=== PATIENT | male | born 1960 | race Caucasian/White ===

== ENCOUNTER 2019-05-17 09:39 | Inpatient (IN) | payer MEDICARE, OTHER ==
[2019-05-17] MEDS ORDERED: LORazepam 2 MG/ML INJ IV PRN (09:49)
--- NOTE | 2019-05-17 09:55 | ED ---
General Adult HPI - General Stated complaint: Cardiac issuses Time Seen by Provider: 05/17/19 09:39 Source: EMS, RN notes reviewed, old records reviewed Mode of arrival: EMS Limitations: altered mental status, physical limitation - History of Present Illness Initial comments: Patient is an unresponsive 58-year-old male with history of Down syndrome presenting to emergency Department as a transfer from [facility]. Patient reportedly was eating when there was questionable choking and patient became unresponsive. Patient had a downtime of approximately 40 minutes. Patient was given 3 epinephrine. Patient was intubated. There was reported concern for food products and the oral pharynx during intubation. Patient did have central line placed and started on Levophed. Patient was also given clindamycin with concern for possible aspiration pneumonia. Patient is unresponsive and unable to provide any additional information. Patient reportedly did have 2 L fluid bolus. - Related Data Home Medications Medication Instructions Recorded Confirmed Ascorbic Acid [Vitamin C] 500 mg PO DAILY 02/23/14 02/23/14 Atorvastatin [Lipitor] 20 mg PO DAILY 02/23/14 02/23/14 Clotrimazole/Betameth Cream 1 appful TOPICAL DIRECTED 02/23/14 02/23/14 [Lotrisone Cream] Docusate Sodium [Stool Softener] 100 mg PO DAILY 02/23/14 02/23/14 Folic Acid 1 mg PO DAILY 02/23/14 02/23/14 Imipramine HCl [Tofranil] 25 mg PO DAILY 02/23/14 02/23/14 Lactulose 30 ml PO HS PRN 02/23/14 02/23/14 Melatonin 3 mg PO HS 02/23/14 02/23/14 Multivitamins, Thera [Multivitamin 1 tab PO DAILY 02/23/14 02/23/14 (formulary)] Potassium Chloride [Klor-Con 20] 20 meq PO DAILY 02/23/14 02/23/14 Primidone [Mysoline] 50 mg PO HS 02/23/14 02/23/14 traZODone HCL [traZODone] 150 mg PO HS 02/23/14 02/23/14 Previous Rx's Medication Instructions Recorded Divalproex [Depakote] 500 mg PO BID #60 tablet. 02/28/14 Lacosamide [Vimpat] 50 mg PO DAILY #30 tablet 02/28/14 Levothyroxine Sodium [Synthroid] 112 mcg PO DAILY@0630 #30 tablet 02/28/14 amLODIPine [Norvasc] 10 mg PO DAILY #30 tab 02/28/14 Allergies Allergy/AdvReac Type Severity Reaction Status Date / Time phenytoin sodium Allergy Unknown Verified 02/23/14 15:25 [From Dilantin] phenytoin sodium extended Allergy Unknown Verified 02/23/14 15:25 [From Dilantin] Review of Systems ROS Statement: Those systems with pertinent positive or pertinent negative responses have been documented in the HPI. ROS Other: All systems not noted in ROS Statement are negative. Limitations: ROS unobtainable due to patients medical condition Past Medical History Past Medical History: Dementia, Hypertension, Seizure Disorder, Thyroid Disorder Additional Past Medical History / Comment(s): down syndrome History of Any Multi-Drug Resistant Organisms: None Reported Past Surgical History: Tonsillectomy Additional Past Surgical History / Comment(s): EAR SX, AND TIP OF FINGER REMOVED Past Anesthesia/Blood Transfusion Reactions: No Reported Reaction Past Psychological History: Depression Smoking Status: Never smoker Past Alcohol Use History: None Reported Past Drug Use History: None Reported General Exam Limitations: altered mental status, physical limitation General appearance: obtunded Head exam: Present: atraumatic Eye exam: Present: other (Pupils are sluggish) ENT exam: Present: normal oropharynx Neck exam: Present: normal inspection Respiratory exam: Present: normal lung sounds bilaterally Cardiovascular Exam: Present: regular rate, normal rhythm Expanded Peripheral pulses: 2+: Radial (R), Radial (L), Dorsalis Pedis (R), Dorsalis Pedis (L) GI/Abdominal exam: Present: soft. Absent: distended, tenderness, pulsatile mass Extremities exam: Present: normal inspection. Absent: pedal edema, calf tenderness Neurological exam: Present: other (Unresponsive. Does not withdraw to pain. Pupils are sluggish.) Expanded Eye Response: (4) open spontaneously Motor Response: (1) no motor response Verbal Response: (1) no verbal response Psychiatric exam: Present: other (Nonverbal) Skin exam: Present: pallor Course Vital Signs 05/17/19 09:50 Pulse Rate 67 Respiratory 20 Rate Blood Pressure 112/75 O2 Sat by Pulse 100 Oximetry - Reevaluation(s) Reevaluation #1: 10/22/19 10:45 Case was discussed in detail with Dr. Chaidez, who will admit for Dr. Foley. Case also discussed in detail with Dr. Velez, who will consult for critical care. He does request computed tomography scan of the head and neurology evaluation secondary to having to concerns for anoxic brain injury. He will evaluate patient in ICU. EKG Findings - EKG Comments: EKG Findings:: Normal sinus rhythm 65. TN 136. QRS 92. QT 460. QTC 478. Left axis. Normal QRS. There is some ST depression leads V3 through V6. Medical Decision Making - Medical Decision Making Patient reevaluated. - Lab Data Result diagrams: 05/17/19 10:14 Lab Results 05/17/19 05/17/19 05/17/19 Range/Units 09:48 10:14 10:14 PT 12.0 (9.0-12.0) sec INR 1.1 (<1.2) APTT 24.5 (22.0-30.0) sec Sample Site ABG pH (7.35-7.45) ABG pCO2 (35-45) mmHg ABG pO2 (83-108) mmHg ABG HCO3 (21-25) mmol/L ABG Total CO2 (19-24) mmol/L ABG O2 Saturation (94-97) % ABG Base Excess mmol/L Vasile Test FiO2 % Sodium 141 (137-145) mmol/L Potassium 3.1 L (3.5-5.1) mmol/L Chloride 108 H (98-107) mmol/L Carbon Dioxide 24 (22-30) mmol/L Anion Gap 9 mmol/L BUN 23 H (9-20) mg/dL Creatinine 0.64 L (0.66-1.25) mg/dL Est GFR (CKD-EPI)AfAm >90 (>60 ml/min/1.73 sqM) Est GFR (CKD-EPI)NonAf >90 (>60 ml/min/1.73 sqM) Glucose 152 H (74-99) mg/dL POC Glucose (mg/dL) 134 H (75-99) mg/dL POC Glu Solar Energy Technician ID Paulina Pichardo Calcium 7.9 L (8.4-10.2) mg/dL Magnesium 1.7 (1.6-2.3) mg/dL Total Bilirubin 0.3 (0.2-1.3) mg/dL AST 150 H (17-59) U/L ALT 142 H (21-72) U/L Alkaline Phosphatase 58 (38-126) U/L Creatine Kinase 284 H (55-170) U/L Total Protein 6.1 L (6.3-8.2) g/dL Albumin 2.7 L (3.5-5.0) g/dL 05/17/19 Range/Units 10:20 PT (9.0-12.0) sec INR (<1.2) APTT (22.0-30.0) sec Sample Site R BRACH ABG pH 7.42 (7.35-7.45) ABG pCO2 37 (35-45) mmHg ABG pO2 144 H (83-108) mmHg ABG HCO3 24 (21-25) mmol/L ABG Total CO2 25 H (19-24) mmol/L ABG O2 Saturation 99.2 H (94-97) % ABG Base Excess -0.7 mmol/L Vasile Test Yes FiO2 100 % Sodium (137-145) mmol/L Potassium (3.5-5.1) mmol/L Chloride (98-107) mmol/L Carbon Dioxide (22-30) mmol/L Anion Gap mmol/L BUN (9-20) mg/dL Creatinine (0.66-1.25) mg/dL Est GFR (CKD-EPI)AfAm (>60 ml/min/1.73 sqM) Est GFR (CKD-EPI)NonAf (>60 ml/min/1.73 sqM) Glucose (74-99) mg/dL POC Glucose (mg/dL) (75-99) mg/dL POC Glu Solar Energy Technician ID Calcium (8.4-10.2) mg/dL Magnesium (1.6-2.3) mg/dL Total Bilirubin (0.2-1.3) mg/dL AST (17-59) U/L ALT (21-72) U/L Alkaline Phosphatase (38-126) U/L Creatine Kinase (55-170) U/L Total Protein (6.3-8.2) g/dL Albumin (3.5-5.0) g/dL - Radiology Data Radiology results: image reviewed (Chest x-ray has some concern for interstitial changes and pulmonary venous hypertension. Cannot rule out pneumonia. Possible cardiomegaly.) Critical Care Time Critical Care Time: Yes Total Critical Care Time: 32 Disposition Clinical Impression: Cardiac arrest, Aspiration pneumonia Disposition: ADMITTED IP TO THIS HOSP Condition: Critical Is patient prescribed a controlled substance at d/c from ED?: No Referrals: Duran Arrieta MD [Primary Care Provider] - 1-2 days Decision Time: 10:46
--- NOTE | 2019-05-17 10:04 | XR ---
EXAMINATION TYPE: XR chest 1V portable DATE OF EXAM: 05/17/2019 COMPARISON: Prior chest x-ray dated 02/23/2014 HISTORY: Dyspnea TECHNIQUE: Single frontal view of the chest is obtained. FINDINGS: Endotracheal tube is overlying the tracheal air column, there is a right jugular central v enous catheter with the distal tip in the right atrium. There are overlying cardiac leads. No evident pneumothorax or pleural effusion. Heart may appear enlarged due to rotation. Perihilar vascular aliya stinctness is present, interstitium is increased slightly. Bandlike areas of increased attenuation pr esent in the left midlung and lower lobe. IMPRESSION: Correlate for possible volume overload, pulmonary venous hypertension and interstitial e cara. There may be subsegmental atelectatic changes, pneumonia not excluded. Possible cardiomegaly.
[2019-05-17 10:22] LABS: Glucose,Whole Blood 134 mg/dL (75-99)
[2019-05-17 10:25] LABS: ABG Base Excess -0.7 mmol/L; ABG HCO3 24 mmol/L (21-25); ABG Oxygen Saturation 99.2 % (94-97); ABG PCO2 37 mmHg (35-45); ABG PH 7.42 (7.35-7.45); ABG PO2 144 mmHg (83-108); ABG TCO2 25 mmol/L (19-24); Allen Test Performed? Yes
[2019-05-17] MEDS: LORazepam 2 MG/ML INJ IV PRN ×2 (10:36→13:41)
[2019-05-17] MEDS: NOREPINEPHRINE 32 MG in SODIUM CHLORIDE 0.9% 218 ML IV SCH (10:39)
[2019-05-17 10:43] LABS: ALT 142 U/L (21-72); AST 150 U/L (17-59); African American GFR (CKD) >90 (>60 ml/min/1.73 sqM); Albumin 2.7 g/dL (3.5-5.0); Alkaline Phosphatase 58 U/L (38-126); Anion Gap 9 mmol/L; Blood Urea Nitrogen 23 mg/dL (9-20); Calcium 7.9 mg/dL (8.4-10.2); Carbon Dioxide 24 mmol/L (22-30); Chloride 108 mmol/L (98-107); Creatine Kinase 284 U/L (55-170); Glucose 152 mg/dL (74-99); INR 1.1 (<1.2); Magnesium 1.7 mg/dL (1.6-2.3); Partial Thromboplastin Time 24.5 sec (22.0-30.0); Potassium 3.1 mmol/L (3.5-5.1); Sodium 141 mmol/L (137-145); Total Bilirubin 0.3 mg/dL (0.2-1.3); Total Protein 6.1 g/dL (6.3-8.2)
[2019-05-17 10:45] LABS: HCT 41.2 % (39.0-53.0); HGB 13.3 gm/dL (13.0-17.5); MCH 32.6 pg (25.0-35.0); MCHC 32.2 g/dL (31.0-37.0); MCV 101.1 fL (80.0-100.0); Macrocytosis Slight; Mean Platelet Volume 6.7; Platelet Count 134 k/uL (150-450); RBC 4.08 m/uL (4.30-5.90); WBC 7.6 k/uL (3.8-10.6)
[2019-05-17] MEDS ORDERED: POTASSIUM CHLORIDE 2 MEQ/ML 20 ML VIAL IVPB STA (10:47)
[2019-05-17] MEDS ORDERED: PNEUMONIA PROTOCOL UTILIZED 1 EACH MISC PO PRN (10:48)
[2019-05-17] MEDS ORDERED: LEVOFLOXACIN 750MG-D5W PMX 750 MG in DEXTROSE/WATER 1 150ML.BAG IVPB STA (10:48)
[2019-05-17] MEDS ORDERED: PIPERACILLIN-TAZOBACTAM 3.375 GM in SODIUM CHLORIDE 0.9% 100 ML IVPB STA (10:48)
[2019-05-17 11:10] LABS: Basophils # (M) 0.08 k/uL (0-0.2); Metamyelocytes # (M) 0.08 k/uL (0); Metamyelocytes % 1 %; Nucleated Red Blood Cells 0 /100 WBC (0-0)
[2019-05-17 11:11] LABS: Band Neutrophils % 8 %; Eosinophils # (M) 0.08 k/uL (0-0.7); Lymphocytes # (M) 0.68 k/uL (1.0-4.8); Monocytes # (M) 0.53 k/uL (0-1.0); Neutrophils % (M) 76 %; Total Cells Counted 200
[2019-05-17 11:12] LABS: Poikilocytosis (M) Present
[2019-05-17] MEDS: POTASSIUM CHLORIDE 10 MEQ in WATER FOR INJECTION 1 100ML.BAG IVPB SCH ×3 (11:44→15:01)
--- NOTE | 2019-05-17 11:46 | CT ---
EXAMINATION TYPE: CT brain wo con DATE OF EXAM: 05/17/2019 COMPARISON: 02/14/2013 HISTORY: 58-year-old male unresponsive TECHNIQUE: Examination was done in axial plane without intravenous contrast. Coronal and sagittal r econstructions performed. CT DLP: 1078.4 mGycm Automated exposure control for dose reduction was used. FINDINGS: There is no evidence of acute intracranial hemorrhage, acute ischemic changes, mass, mass-effect, or extra-axial fluid collection. There is no effacement of cerebral sulci or basal subarachnoid cister ns. There is no midline shift. Harvey-white matter distinction is preserved. Area of encephalomalacia within the anterior right frontal lobe is new from 2013. Atherosclerotic ca lcifications within the carotid siphons Moderate hydrocephalus with Dmitry's ratio of 0.43 has increased from 2013. Air-fluid levels throughout the paranasal sinuses. Frontal sinuses are hypoplastic. Prominent cerumen in the external auditory canals. IMPRESSION: 1. Chronic encephalomalacia anterior right frontal lobe suggesting sequela of prior vascular or traum atic insult, new from 2012. 2. Progressive moderate hydrocephalus as compared to 2013. Correlate for possible NPH. 3. No acute intracranial hemorrhage or midline shift. 4. Paranasal sinus air-fluid levels can be seen with acute sinusitis.
[2019-05-17] MEDS ORDERED: ASPIRIN 81 MG PO STA (11:55)
[2019-05-17] MEDS ORDERED: HEPARIN SODIUM,PORCINE 5,000 UNIT/ML 1 ML VIAL IV PRN (11:55)
[2019-05-17] MEDS ORDERED: HEPARIN SODIUM,PORCINE 5,000 UNIT/ML 1 ML VIAL IV ONE (11:55)
[2019-05-17] MEDS ORDERED: HEPARIN SOD,PORK IN 0.45% NACL 25,000 UNIT in 0.45% NACL 1 250ML.BAG IV SCH (12:00)
[2019-05-17] MEDS: SODIUM CHLORIDE 0.9% 1,000 ML IV SCH (12:12)
[2019-05-17 13:11] LABS: Glucose,Whole Blood 152 mg/dL (75-99)
[2019-05-17] MEDS: PROPOFOL 1,000 MG in EMPTY BAG 1 BAG IV SCH (14:00)
--- NOTE | 2019-05-17 14:54 | EEG ---
ELECTROENCEPHALOGRAM REPORT DATE OF SERVICE: 05/17/2019 PREAMBLE: A 58-year-old male with cardiac arrest. This study is performed to evaluate for electrocerebral activity. EEG FINDINGS: A routine 21 channel awake digital EEG recording was accomplished utilizing the 10/20 international system with bipolar and referential montages. The background mainly consists of severely low amplitude activity with no discernible background activity during most of the study. There are intermittent bursts of high amplitude generalized theta activity with some is sharp appearing waves in a generalized distribution, lasting for 2-3 seconds. These bursts are sporadic, occurring about once every at 5-20 seconds. No clinical seizure like activity was reported by the retail service technician. Photic driving response was not seen. Different stages of sleep were not seen. IMPRESSION: This is a severely abnormal EEG due to presence of generalized suppression, with intermittent bursts of higher voltage activity. The presence of burst suppressed pattern is typically seen with severe anoxic or toxic metabolic encephalopathies and pertains to a poor prognosis. Followup EEG is recommended, if clinically indicated. No definitive epileptiform activity was seen. MMODL / IJN: [id number] /
--- NOTE | 2019-05-17 15:11 | P.CNPUL ---
History of Present Illness Consult date: 05/17/19 Requesting physician: Kaden Brennan Reason for consult: other (Cardiac arrest and hypoxic respiratory failure) Chief complaint: Unresponsiveness History of present illness: This is a 58-year-old white male with history of Down syndrome, patient lives in a senior living, and he is wheelchair ridden. Patient was eating and he had a sudden episode of choking, became unresponsive, and CPR was started by senior living staff. EMS was called, and CPR continued. Patient was brought into the emergency room at [facility], CPR was continued, patient received 3 epinephrine is, he was intubated, and food products were witnessed in the oropharynx during intubation. Patient had a central line placed by ER physician at [facility], he was hypotensive requiring levo fed, and he was started on antibiotics empirically. Patient received a total of 2 L of fluid boluses during CPR, and total down time was over 40 minutes. Patient was brought into our ER as a transfer, CT of the brain was performed, and it showed chronic encephalomalacia anterior right frontal lobe suggesting sequela of prior vascular or traumatic insult, new from 2013. It also showed progressive moderate hydrocephalus compared to CT in 2013. Correlate for possible NPH. There was no evidence of intracranial hemorrhage or midline shift. Chest x-ray showed bibasilar opacities, and increased interstitial markings. Right IJ central line was noted in place, and endotracheal tube was noted to be in proper position. Upon evaluating the patient in the ICU, he is now on assist control mode of mechanical ventilation, tidal volume is 400 rate is 20 FiO2 is 50% and PEEP is 5. ABG on these vent settings is pending. Patient was placed empirically on antibiotics in the form of Zosyn and Levaquin, lactic acid was noted to be elevated, hence he received fluid boluses almost 3 L were given so far. Lactic acid is pending all his labs were reviewed CBC was relatively normal. ABG on 100% earlier showed a pO2 of 144 pCO2 of 37 pH of 7.42. Basic metabolic profile was normal except for low potassium of 3.1 and BUN and creatinine normal. Lactic acid on presentation was 4.6. Troponin noted to be elevated at 0.336. Valproic acid level is therapeutic Review of Systems ROS unobtainable: due to endotracheal tube Past Medical History Past Medical History: Dementia, Hypertension, Seizure Disorder, Thyroid Disorder Additional Past Medical History / Comment(s): down syndrome History of Any Multi-Drug Resistant Organisms: None Reported Past Surgical History: Tonsillectomy Additional Past Surgical History / Comment(s): EAR SX, AND TIP OF FINGER REMOVED Past Anesthesia/Blood Transfusion Reactions: No Reported Reaction Past Psychological History: Depression Smoking Status: Never smoker Past Alcohol Use History: None Reported Past Drug Use History: None Reported Medications and Allergies Home Medications Medication Instructions Recorded Confirmed Type Imipramine HCl [Tofranil] 25 mg PO HS 02/23/14 05/17/19 History Multivitamins, Thera [Multivitamin 1 tab PO DAILY 02/23/14 05/17/19 History (formulary)] Primidone [Mysoline] 25 mg PO HS 02/23/14 05/17/19 History traZODone HCL [traZODone] 300 mg PO HS 02/23/14 05/17/19 History Acetaminophen Tab [Tylenol Tab] 500 mg PO Q6H 05/17/19 05/17/19 History Aspirin [[place] Aspirin EC] 81 mg PO DAILY 05/17/19 05/17/19 History Beneprotein Powder 1 scoop PO BID 05/17/19 05/17/19 History Carbamide Peroxide [Debrox Otic] 5 drops BOTH EARS BID PRN 05/17/19 05/17/19 History Clindamycin Topical Soln 1 applic TOPICAL BID 05/17/19 05/17/19 History [Cleocin-T Topical Soln] Divalproex [Depakote] 1,000 mg PO DAILY 05/17/19 05/17/19 History Divalproex [Depakote] 250 mg PO HS 05/17/19 05/17/19 History Divalproex [Depakote] 500 mg PO HS 05/17/19 05/17/19 History Ibuprofen 200 mg PO Q6H PRN 05/17/19 05/17/19 History Ketoconazole [Ketoconazole 2%] 1 applic TOPICAL DAILY 05/17/19 05/17/19 History LORazepam [Ativan] 1 mg PO DAILY PRN 05/17/19 05/17/19 History Lacosamide [Vimpat] 100 mg PO BID 05/17/19 05/17/19 History Levothyroxine Sodium [Synthroid] 137 mcg PO DAILY 05/17/19 05/17/19 History Loperamide [Imodium] 2 mg PO QID PRN 05/17/19 05/17/19 History Magnesium Hydroxide [Milk of 2,400 mg PO DAILY PRN 05/17/19 05/17/19 History Magnesia] Melatonin 5 mg PO HS 05/17/19 05/17/19 History Nystatin 1 applic TOPICAL BID PRN 05/17/19 05/17/19 History Omeprazole [PriLOSEC] 20 mg PO DAILY 05/17/19 05/17/19 History Sennosides/Docusate Sodium [Senna 2 tab PO HS 05/17/19 05/17/19 History Plus 8.6-50 mg Tablet] Simvastatin [Zocor] 20 mg PO HS 05/17/19 05/17/19 History Sucralfate [Carafate] 1 gm PO BID-W/MEALS 05/17/19 05/17/19 History Triamcinolone Acetonide 1 applic TOPICAL HS 05/17/19 05/17/19 History [Triamcinolone Acetonide 0.025%] Allergies Allergy/AdvReac Type Severity Reaction Status Date / Time phenytoin sodium Allergy Unknown Verified 05/17/19 14:49 [From Dilantin] phenytoin sodium extended Allergy Unknown Verified 05/17/19 14:49 [From Dilantin] Physical Exam Vitals: Vital Signs Temp Pulse Resp BP Pulse Ox 05/17/19 14:00 90 20 99/61 97 05/17/19 13:45 85 20 109/75 98 05/17/19 13:30 88 20 105/71 99 05/17/19 13:15 89 20 99/73 100 05/17/19 13:00 97.4 F L 86 20 127/72 99 05/17/19 12:45 124/75 05/17/19 12:30 82 20 126/82 99 05/17/19 12:15 95.6 F L 82 14 126/82 99 05/17/19 11:30 80 16 104/89 99 05/17/19 11:01 94.0 F L 72 14 140/95 100 05/17/19 11:00 71 16 133/90 100 05/17/19 10:30 68 16 85/67 100 05/17/19 10:00 67 16 112/75 100 05/17/19 09:50 67 20 112/75 100 Intake and Output 05/16/19 05/17/19 05/17/19 22:59 06:59 14:59 Intake Total 254.883 Output Total 1300 Balance -1045.117 Intake: IV 250 Levofloxacin 750Mg-D5w 150 Pmx 750 mg In Dextrose/ Water 1 150ml.bag @ 100 mls/hr IVPB ONCE STA Rx#: [id number] Sodium Chloride 0.9% 1, 100 000 ml @ 100 mls/hr IV . Q10H ATUL Rx#:[id number] Intake, IV Titration 4.883 Amount Norepinephrine 32 mg In 4.883 Sodium Chloride 0.9% 218 ml @ 0.05 MCG/KG/MIN 1. 765 mls/hr IV .Q24H ATUL Rx#:[id number] Output: Urine 1300 Other: Weight 75.296 kg Physical Exam physical exam revealed a 58-year-old white male, with down syndrome features, on mechanical ventilation, sedated, in no distress. HEENT: Short neck, Neck is supple.] [No neck masses.] [No thyromegaly.] [No JVD.] Moist mucous membranes, endotracheal tube is intact, and orogastric tube is intact. Pupils are sluggish but responsive to light. Chest: [Clear throughout, no crackles, no rhonchi, no wheezes.] Cardiac Exam: [Normal S1 and S2, no S3 gallop, 2/6 systolic murmur throughout the precordium.] Abdomen: [Soft, nontender, no megaly, no rebound, no guarding, normal bowel sounds.] Extremities: [No clubbing, no edema, no cyanosis.] Evidence of upper and lower extremities atrophy, poor muscle tone. Good pulses bilaterally. Neurological Exam: [Patient is sedated, could not have a full assessment, unresponsive to any stimuli except to deep painful stimuli were and the patient is noted to withdraw from pain. Skin: No rashes. Psychiatric: Could not be assessed. Lymphatics: No lymphadenopathy. Results - Laboratory Findings CBC and BMP: 05/17/19 10:14 05/17/19 10:14 ABG ABG pH 7.42 (7.35-7.45) 05/17/19 10:20 ABG pCO2 37 mmHg (35-45) 05/17/19 10:20 ABG pO2 144 mmHg (83-108) H 05/17/19 10:20 ABG O2 Saturation 99.2 % (94-97) H 05/17/19 10:20 PT/INR, D-dimer PT 12.0 sec (9.0-12.0) 05/17/19 10:14 INR 1.1 (<1.2) 05/17/19 10:14 Abnormal lab findings: Abnormal Labs 05/17/19 05/17/19 05/17/19 09:48 10:14 10:14 RBC 4.08 L MCV 101.1 H Plt Count 134 L Lymphocytes # (Manual) 0.68 L Metamyelocytes # (Man) 0.08 H ABG pO2 ABG Total CO2 ABG O2 Saturation Potassium 3.1 L Chloride 108 H BUN 23 H Creatinine 0.64 L Glucose 152 H POC Glucose (mg/dL) 134 H Plasma Lactic Acid David Calcium 7.9 L AST 150 H ALT 142 H Creatine Kinase 284 H Troponin I Total Protein 6.1 L Albumin 2.7 L 05/17/19 05/17/19 05/17/19 10:14 10:14 10:20 RBC MCV Plt Count Lymphocytes # (Manual) Metamyelocytes # (Man) ABG pO2 144 H ABG Total CO2 25 H ABG O2 Saturation 99.2 H Potassium Chloride BUN Creatinine Glucose POC Glucose (mg/dL) Plasma Lactic Acid David 4.6 H* Calcium AST ALT Creatine Kinase Troponin I 0.336 H* Total Protein Albumin 05/17/19 12:59 RBC MCV Plt Count Lymphocytes # (Manual) Metamyelocytes # (Man) ABG pO2 ABG Total CO2 ABG O2 Saturation Potassium Chloride BUN Creatinine Glucose POC Glucose (mg/dL) 152 H Plasma Lactic Acid David Calcium AST ALT Creatine Kinase Troponin I Total Protein Albumin - Diagnostic Findings Chest x-ray: image reviewed Additional studies: CT of the brain as noted in HPI. Assessment and Plan Assessment: Impression: 1 acute hypoxic respiratory failure secondary to cardiac arrest possibly secondary to choking and aspiration. 2 suspect anoxic brain injury considering the down time noted in the chart. 3 Down syndrome 4 history of normal pressure hydrocephalus, may be worse based on CT of the brain done on admission 5 possible aspiration pneumonia 6 and lactic acidosis secondary to cardiac arrest and hypoperfusion, strongly doubt sepsis. 7 history of seizure disorder patient is maintained on Depakote which will be restarted. Recommendation: Continue ventilatory support Start the nutritional support Empiric antibiotics for presumptive aspiration pneumonia GI and DVT prophylaxis Hemodynamic support, use norepinephrine as needed maintained mean arterial pressure above 65 Daily x-rays and daily ABG daily labs Neurological consultation as the patient may have developed anoxic brain injury Discussed CODE STATUS with brother who is his guardian and the patient is DO NOT RESUSCITATE at this point. Review home seizure meds via nasogastric tube. And other meds taken at home. Initiated cardiac consultation Prognosis is extremely poor and guarded, discussed his condition with his brother at bedside. We'll continue to follow. Time with Patient: Greater than 30
[2019-05-17 15:18] LABS: Allen Test Performed? Yes
[2019-05-17 15:19] LABS: ABG Base Excess -0.2 mmol/L; ABG HCO3 24 mmol/L (21-25); ABG Oxygen Saturation 90.6 % (94-97); ABG PCO2 38 mmHg (35-45); ABG PH 7.41 (7.35-7.45); ABG TCO2 26 mmol/L (19-24)
[2019-05-17 15:22] LABS: ABG PO2 58 mmHg (83-108)
[2019-05-17] MEDS: IPRATROPIUM-ALBUTEROL 3 ML NEB INHALATION PRN (15:27)
[2019-05-17] MEDS ORDERED: SODIUM CHLORIDE 0.9% 1,000 ML IV ONE (16:20)
--- NOTE | 2019-05-17 16:27 | P.CNNES ---
History of Present Illness Consult date: 05/17/19 Requesting physician: Yogesh Min Reason for Consult: Cardiac arrest History of Present Illness: Patient is a 58-year-old male with history of Down syndrome, lives in a jail and is wheelchair bound. He also has very limited speech. Patient had an episode of choking today at 7:30 AM. Patient became unresponsive. CPR was started by jail staff. EMS was called. CPR was continued and downtime reported as 40 minutes. Patient received 3 sessions of epinephrine, was intubated, and food products were witnessed in the oropharynx during intubation. Patient received 2 L of fluid boluses during CPR. Patient was brought to ER. CT head showed chronic encephalomalacia in the right frontal lobe suggesting s equela of prior vascular or traumatic insult. This is new from 2012. It also showed progressive moderate hydrocephalus compared to CT in 2013. Chest x-ray showed bibasilar opacities increased interstitial markings. No seizures have been noted. Neurology was consulted for cardiac arrest and possible anoxic encephalopathy. Review of Systems ROS unobtainable: due to endotracheal tube, due to mental status Past Medical History Past Medical History: Dementia, Hyperlipidemia, Hypertension, Seizure Disorder, Thyroid Disorder Additional Past Medical History / Comment(s): Down's syndrome (limited verbal abilities), possible CVA, no longer ambulatory thought possibly d/t CVA, incontinent urine and stool, last seizure about 1 month ago, chronic hyponatremia 2ndary to SIADH. 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 Past Anesthesia/Blood Transfusion Reactions: No Reported Reaction Smoking Status: Never smoker - Past Family History Father Family Medical History: Congestive Heart Failure (CHF) Additional Family Medical History / Comment(s): Father of CHF at the age of 65 yrs. Mother Family Medical History: Hyperlipidemia, Neurologic Disorder Additional Family Medical History / Comment(s): Mother from progressive nuclear palsey. Medications and Allergies Home Medications Medication Instructions Recorded Confirmed Type Imipramine HCl [Tofranil] 25 mg PO HS 02/23/14 05/17/19 History Multivitamins, Thera [Multivitamin 1 tab PO DAILY 02/23/14 05/17/19 History (formulary)] Primidone [Mysoline] 25 mg PO HS 02/23/14 05/17/19 History traZODone HCL [traZODone] 300 mg PO HS 02/23/14 05/17/19 History Acetaminophen Tab [Tylenol Tab] 500 mg PO Q6H 05/17/19 05/17/19 History Aspirin [Bailey Aspirin EC] 81 mg PO DAILY 05/17/19 05/17/19 History Beneprotein Powder 1 scoop PO BID 05/17/19 05/17/19 History Carbamide Peroxide [Debrox Otic] 5 drops BOTH EARS BID PRN 05/17/19 05/17/19 History Clindamycin Topical Soln 1 applic TOPICAL BID 05/17/19 05/17/19 History [Cleocin-T Topical Soln] Divalproex [Depakote] 1,000 mg PO DAILY 05/17/19 05/17/19 History Divalproex [Depakote] 250 mg PO HS 05/17/19 05/17/19 History Divalproex [Depakote] 500 mg PO HS 05/17/19 05/17/19 History Ibuprofen 200 mg PO Q6H PRN 05/17/19 05/17/19 History Ketoconazole [Ketoconazole 2%] 1 applic TOPICAL DAILY 05/17/19 05/17/19 History LORazepam [Ativan] 1 mg PO DAILY PRN 05/17/19 05/17/19 History Lacosamide [Vimpat] 100 mg PO BID 05/17/19 05/17/19 History Levothyroxine Sodium [Synthroid] 137 mcg PO DAILY 05/17/19 05/17/19 History Loperamide [Imodium] 2 mg PO QID PRN 05/17/19 05/17/19 History Magnesium Hydroxide [Milk of 2,400 mg PO DAILY PRN 05/17/19 05/17/19 History Magnesia] Melatonin 5 mg PO HS 05/17/19 05/17/19 History Nystatin 1 applic TOPICAL BID PRN 05/17/19 05/17/19 History Omeprazole [PriLOSEC] 20 mg PO DAILY 05/17/19 05/17/19 History Sennosides/Docusate Sodium [Senna 2 tab PO HS 05/17/19 05/17/19 History Plus 8.6-50 mg Tablet] Simvastatin [Zocor] 20 mg PO HS 05/17/19 05/17/19 History Sucralfate [Carafate] 1 gm PO BID-W/MEALS 05/17/19 05/17/19 History Triamcinolone Acetonide 1 applic TOPICAL HS 05/17/19 05/17/19 History [Triamcinolone Acetonide 0.025%] Allergies Allergy/AdvReac Type Severity Reaction Status Date / Time phenytoin sodium Allergy Unknown Verified 05/17/19 14:49 [From Dilantin] phenytoin sodium extended Allergy Unknown Verified 05/17/19 14:49 [From Dilantin] Physical Examination - Vital Signs Vital Signs: Vital Signs Temp Pulse Resp BP Pulse Ox 05/17/19 15:37 91 05/17/19 15:30 96 20 85/60 81 L 05/17/19 15:15 92 20 78/54 95 05/17/19 15:00 90 20 93 L 05/17/19 14:45 91 20 100/67 95 05/17/19 14:30 92 20 92/65 98 05/17/19 14:15 93 20 93/68 95 05/17/19 14:00 90 20 99/61 97 05/17/19 13:45 85 20 109/75 98 05/17/19 13:30 88 20 105/71 99 05/17/19 13:15 89 20 99/73 100 05/17/19 13:00 97.4 F L 86 20 127/72 99 05/17/19 12:45 124/75 05/17/19 12:30 82 20 126/82 99 05/17/19 12:15 95.6 F L 82 14 126/82 99 05/17/19 11:30 80 16 104/89 99 05/17/19 11:01 94.0 F L 72 14 140/95 100 05/17/19 11:00 71 16 133/90 100 05/17/19 10:30 68 16 85/67 100 05/17/19 10:00 67 16 112/75 100 05/17/19 09:50 67 20 112/75 100 Intake and Output 05/17/19 05/17/19 05/17/19 06:59 14:59 22:59 Intake Total 454.883 307.735 Output Total 1300 30 Balance -845.117 277.735 Intake: IV 450 300 Levofloxacin 750Mg-D5w 150 Pmx 750 mg In Dextrose/ Water 1 150ml.bag @ 100 mls/hr IVPB ONCE STA Rx#: [id number] Potassium Chloride 10 meq 100 100 In Water For Injection 1 100ml.bag @ 100 mls/hr IVPB Q1H [facility] Rx#: [id number] Sodium Chloride 0.9% 1, 200 200 000 ml @ 100 mls/hr IV . Q10H [facility] Rx#:[id number] Intake, IV Titration 4.883 7.735 Amount Norepinephrine 32 mg In 4.883 3.142 Sodium Chloride 0.9% 218 ml @ 0.05 MCG/KG/MIN 1. 765 mls/hr IV .Q24H [facility] Rx#:[id number] Propofol 1,000 mg In 4.593 Empty Bag 1 bag @ Titrate IV .Q0M [facility] Rx#: [id number] Output: Urine 1300 30 Other: Weight 75.296 kg ABP, PAP, CO, CI - Last 8 Hours Arterial Blood Pressure 73/47 Arterial Blood Pressure 94/56 Arterial Blood Pressure 103/64 On examination patient is an elderly male, intubated, unresponsive to vocal or noxious stimuli. Patient does open his eyes sometimes partially, inconsistently, not to the commands. His right pupil is mildly reactive but the left is nonreactive. Oculocephalics are absent. Patient has a week gag. He does not breathe over the ventilator. No obvious seizure activity is noted. Patient has bilateral sustained clonus. Reflexes are diminished. Tone of muscles is decreased, whereas bulk of muscles normal. Results Patient's Depakote level is therapeutic 62.2. Lactate was 3.9. AST and ALT are elevated. Troponin is mildly elevated 0.336. - Laboratory Findings CBC and BMP: 05/18/19 03:25 05/18/19 03:25 Abnormal Lab Findings: Abnormal Labs 05/17/19 05/17/19 05/17/19 09:48 10:14 10:14 RBC 4.08 L MCV 101.1 H Plt Count 134 L Lymphocytes # (Manual) 0.68 L Metamyelocytes # (Man) 0.08 H ABG pO2 ABG Total CO2 ABG O2 Saturation Potassium 3.1 L Chloride 108 H BUN 23 H Creatinine 0.64 L Glucose 152 H POC Glucose (mg/dL) 134 H Plasma Lactic Acid David Calcium 7.9 L AST 150 H ALT 142 H Creatine Kinase 284 H Troponin I Total Protein 6.1 L Albumin 2.7 L 05/17/19 05/17/19 05/17/19 10:14 10:14 10:20 RBC MCV Plt Count Lymphocytes # (Manual) Metamyelocytes # (Man) ABG pO2 144 H ABG Total CO2 25 H ABG O2 Saturation 99.2 H Potassium Chloride BUN Creatinine Glucose POC Glucose (mg/dL) Plasma Lactic Acid David 4.6 H* Calcium AST ALT Creatine Kinase Troponin I 0.336 H* Total Protein Albumin 05/17/19 05/17/19 05/17/19 12:59 13:59 15:17 RBC MCV Plt Count Lymphocytes # (Manual) Metamyelocytes # (Man) ABG pO2 58 L* ABG Total CO2 26 H ABG O2 Saturation 90.6 L Potassium Chloride BUN Creatinine Glucose POC Glucose (mg/dL) 152 H Plasma Lactic Acid David 3.9 H* Calcium AST ALT Creatine Kinase Troponin I Total Protein Albumin Assessment and Plan Assessment: * Status post cardiopulmonary arrest with prolonged down time of around 40 minutes. Patient probably suffered from anoxic brain injury. * Down syndrome * History of normal pressure hydrocephalus. * Probable aspiration pneumonia. * History of seizure disorder, maintained on Depakote. Plan: * EEG revealed bursts suppressed pattern, consistent with significant anoxic encephalopathy. * Overall prognosis for meaningful recovery is low based upon the amount of the downtime, current neurological examination and the EEG findings. * Ammonia level was mildly elevated 59. Patient will be placed on lactulose. * We will follow patient closely. Discussed with patient's parents in detail.
[2019-05-17] MEDS: PIPERACILLIN-TAZOBACTAM 3.375 GM in SODIUM CHLORIDE 0.9% 100 ML IVPB SCH (16:28)
[2019-05-17 16:32] LABS: Appearance,Urine Cloudy (Clear); Bilirubin,Urine Negative (Negative); Blood,Urine Large (Negative); Color,Urine Light Red; Glucose,Urine (UA) Trace (Negative); Granular Casts,Urine 6 /lpf (0); Ketones,Urine 1+ (Negative); Leukocyte Esterase,Urine Trace (Negative); Mucus,Urine Rare /hpf; Nitrite,Urine Negative (Negative); PH, Urine 5.5 (5.0-8.0); Protein,Urine 1+ (Negative); RBC,Urine >182 /hpf (0-5); Specific Gravity,Urine 1.038 (1.001-1.035); Urobilinogen,Urine <2.0 mg/dL (<2.0)
--- NOTE | 2019-05-17 17:38 | P.CRDCN ---
History of Present Illness History of present illness: This is Lizette Angulo PA-C dictating a consult on this patient The patient was interviewed and examined by me as well as by Dr. Villarreal Case discussed with Dr. Villarreal and he agrees with the plan of care IMPRESSION / ASSESSMENT: Acute hypoxic respiratory failure requiring intubation and mechanical ventilation secondary to PEA cardiac arrest Elevated troponins likely secondary to the above Down syndrome History of seizures History of CVA PLAN: Continue heparin Further recommendations to follow based on how the patient does overnight HPI Patient is a 58-year-old male with a past medical history significant for Down syndrome, seizures and prior CVA who was transferred here from [facility] after a cardiac arrest. History obtained from his caregivers and the chart. The caregiver state he had eaten lunch and was sitting in his chair acting his usual self and then he suddenly became unresponsive. He is nonverbal at baseline. His caregivers laid him on the ground and turned him on his side because they thought he was having a seizure. They then noted that he did not have a pulse. They started CPR and place the AED on him. No shock was advised. They called EMS. According to the EMS sheet he was in PEA. At [facility] he got 3 rounds of epinephrine and ROSC was achieved. Subsequent EKG at [facility] showed diffuse ST depressions. According to the chart there was some concern for food products in the oral pharynx during intubation. Estimated down time was about 30-40 minutes. A central line was placed and he was started on pressors. He was transferred to [facility]. Patient seen and examined in the ICU. Remains sedated and intubated. Patient was made a DO NOT RESUSCITATE CODE STATUS but the family wishes to keep him intubated on mechanical ventilation at this time. ROS: Unable to obtain patient is intubated and sedated. EXAMINATION: Patient is afebrile, pulse 85, respirations 20, blood pressure 118/75, oxygen saturation 95% on mechanical ventilation Patient seen and examined, sedated and intubated Breath sounds equal bilaterally Heart is regular, no murmurs noted Extremities warm REVIEW OF LABS, ECG & MEDICAL DATA WBC 7.6, hemoglobin 13.3, platelets 134 Lactic acid 3.9, potassium 3.1, BUN 23, creatinine 0.64 Troponin 1.7, 0.336 Past Medical History Past Medical History: Dementia, Hyperlipidemia, Hypertension, Seizure Disorder, Thyroid Disorder Additional Past Medical History / Comment(s): Down's syndrome (limited verbal abilities), possible CVA, no longer ambulatory thought possibly d/t CVA, incontinent urine and stool, last seizure about 1 month ago, chronic hyponatremia 2ndary to SIADH. 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 Past Anesthesia/Blood Transfusion Reactions: No Reported Reaction Smoking Status: Never smoker - Past Family History Father Family Medical History: Congestive Heart Failure (CHF) Additional Family Medical History / Comment(s): Father of CHF at the age of 65 yrs. Mother Family Medical History: Hyperlipidemia, Neurologic Disorder Additional Family Medical History / Comment(s): Mother from progressive nuclear palsey. Medications and Allergies Home Medications Medication Instructions Recorded Confirmed Type Imipramine HCl [Tofranil] 25 mg PO HS 02/23/14 05/17/19 History Multivitamins, Thera [Multivitamin 1 tab PO DAILY 02/23/14 05/17/19 History (formulary)] Primidone [Mysoline] 25 mg PO HS 02/23/14 05/17/19 History traZODone HCL [traZODone] 300 mg PO HS 02/23/14 05/17/19 History Acetaminophen Tab [Tylenol Tab] 500 mg PO Q6H 05/17/19 05/17/19 History Aspirin [Otero Aspirin EC] 81 mg PO DAILY 05/17/19 05/17/19 History Beneprotein Powder 1 scoop PO BID 05/17/19 05/17/19 History Carbamide Peroxide [Debrox Otic] 5 drops BOTH EARS BID PRN 05/17/19 05/17/19 History Clindamycin Topical Soln 1 applic TOPICAL BID 05/17/19 05/17/19 History [Cleocin-T Topical Soln] Divalproex [Depakote] 1,000 mg PO DAILY 05/17/19 05/17/19 History Divalproex [Depakote] 250 mg PO HS 05/17/19 05/17/19 History Divalproex [Depakote] 500 mg PO HS 05/17/19 05/17/19 History Ibuprofen 200 mg PO Q6H PRN 05/17/19 05/17/19 History Ketoconazole [Ketoconazole 2%] 1 applic TOPICAL DAILY 05/17/19 05/17/19 History LORazepam [Ativan] 1 mg PO DAILY PRN 05/17/19 05/17/19 History Lacosamide [Vimpat] 100 mg PO BID 05/17/19 05/17/19 History Levothyroxine Sodium [Synthroid] 137 mcg PO DAILY 05/17/19 05/17/19 History Loperamide [Imodium] 2 mg PO QID PRN 05/17/19 05/17/19 History Magnesium Hydroxide [Milk of 2,400 mg PO DAILY PRN 05/17/19 05/17/19 History Magnesia] Melatonin 5 mg PO HS 05/17/19 05/17/19 History Nystatin 1 applic TOPICAL BID PRN 05/17/19 05/17/19 History Omeprazole [PriLOSEC] 20 mg PO DAILY 05/17/19 05/17/19 History Sennosides/Docusate Sodium [Senna 2 tab PO HS 05/17/19 05/17/19 History Plus 8.6-50 mg Tablet] Simvastatin [Zocor] 20 mg PO HS 05/17/19 05/17/19 History Sucralfate [Carafate] 1 gm PO BID-W/MEALS 05/17/19 05/17/19 History Triamcinolone Acetonide 1 applic TOPICAL HS 05/17/19 05/17/19 History [Triamcinolone Acetonide 0.025%] Allergies Allergy/AdvReac Type Severity Reaction Status Date / Time phenytoin sodium Allergy Unknown Verified 05/17/19 14:49 [From Dilantin] phenytoin sodium extended Allergy Unknown Verified 05/17/19 14:49 [From Dilantin] Physical Exam Vitals: Vital Signs Temp Pulse Resp BP Pulse Ox 05/17/19 17:15 85 20 118/75 95 05/17/19 17:00 87 20 95/70 95 05/17/19 16:45 91 20 93 L 05/17/19 16:30 91 20 94 L 05/17/19 16:15 92 20 95/70 96 05/17/19 16:00 99.4 F 90 20 111/76 97 05/17/19 15:45 90 20 71/48 98 05/17/19 15:37 91 05/17/19 15:30 96 20 85/60 81 L 05/17/19 15:15 92 20 78/54 95 05/17/19 15:00 90 20 93 L 05/17/19 14:45 91 20 100/67 95 05/17/19 14:30 92 20 92/65 98 05/17/19 14:15 93 20 93/68 95 05/17/19 14:00 90 20 99/61 97 05/17/19 13:45 85 20 109/75 98 05/17/19 13:30 88 20 105/71 99 05/17/19 13:15 89 20 99/73 100 05/17/19 13:00 97.4 F L 86 20 127/72 99 05/17/19 12:45 124/75 05/17/19 12:30 82 20 126/82 99 05/17/19 12:15 95.6 F L 82 14 126/82 99 05/17/19 11:30 80 16 104/89 99 05/17/19 11:01 94.0 F L 72 14 140/95 100 05/17/19 11:00 71 16 133/90 100 05/17/19 10:30 68 16 85/67 100 05/17/19 10:00 67 16 112/75 100 05/17/19 09:50 67 20 112/75 100 Intake and Output 05/17/19 05/17/19 05/17/19 06:59 14:59 22:59 Intake Total 009.913 1795.103 Output Total 1300 40 Balance -825.465 2231.103 Intake: IV 450 1400 Levofloxacin 750Mg-D5w 150 Pmx 750 mg In Dextrose/ Water 1 150ml.bag @ 100 mls/hr IVPB ONCE STA Rx#: [id number] Potassium Chloride 10 meq 100 100 In Water For Injection 1 100ml.bag @ 100 mls/hr IVPB Q1H ATUL Rx#: [id number] Sodium Chloride 0.9% 1, 200 300 000 ml @ 100 mls/hr IV . Q10H ATUL Rx#:[id number] Sodium Chloride 0.9% 1, 1000 000 ml @ 999 mls/hr IV . Q1H1M ONE Rx#:[id number] Intake, IV Titration 4.883 24.103 Amount Norepinephrine 32 mg In 4.883 4.601 Sodium Chloride 0.9% 218 ml @ 0.05 MCG/KG/MIN 1. 765 mls/hr IV .Q24H [facility] Rx#:[id number] Propofol 1,000 mg In 19.502 Empty Bag 1 bag @ Titrate IV .Q0M [facility] Rx#: [id number] Output: Urine 1300 40 Other: Weight 75.296 kg ABP, PAP, CO, CI - Last 8 Hours Arterial Blood Pressure 133/66 Arterial Blood Pressure 131/68 Arterial Blood Pressure 115/63 Arterial Blood Pressure 121/71 Arterial Blood Pressure 104/65 Arterial Blood Pressure 112/69 Arterial Blood Pressure 133/79 Arterial Blood Pressure 73/47 Arterial Blood Pressure 94/56 Arterial Blood Pressure 103/64 Results 05/17/19 10:14 05/17/19 10:14 Cardiac Enzymes 05/17/19 05/17/19 05/17/19 Range/Units 10:14 10:14 16:32 AST 150 H (17-59) U/L Troponin I 0.336 H* 1.700 H* (0.000-0.034) ng/mL Coagulation 05/17/19 Range/Units 10:14 PT 12.0 (9.0-12.0) sec APTT 24.5 (22.0-30.0) sec CBC 05/17/19 Range/Units 10:14 WBC 7.6 (3.8-10.6) k/uL RBC 4.08 L (4.30-5.90) m/uL Hgb 13.3 (13.0-17.5) gm/dL Hct 41.2 (39.0-53.0) % Plt Count 134 L (150-450) k/uL Comprehensive Metabolic Panel 05/17/19 Range/Units 10:14 Sodium 141 (137-145) mmol/L Potassium 3.1 L (3.5-5.1) mmol/L Chloride 108 H (98-107) mmol/L Carbon Dioxide 24 (22-30) mmol/L BUN 23 H (9-20) mg/dL Creatinine 0.64 L (0.66-1.25) mg/dL Glucose 152 H (74-99) mg/dL Calcium 7.9 L (8.4-10.2) mg/dL AST 150 H (17-59) U/L ALT 142 H (21-72) U/L Alkaline Phosphatase 58 (38-126) U/L Total Protein 6.1 L (6.3-8.2) g/dL Albumin 2.7 L (3.5-5.0) g/dL Current Medications Generic Name Dose Route Start Last Admin Trade Name Freq PRN Reason Stop Dose Admin Albuterol/Ipratropium 3 ml 05/17/19 09:49 05/17/19 15:27 Duoneb 0.5 Mg-3 Mg/3 Ml Soln INHALATION 3 ml RT-Q2H PRN Administration Shortness Of Breath Or Wheezing Aspirin 325 mg 05/18/19 09:00 Aspirin PO DAILY ATUL Chlorhexidine Gluconate 15 ml 05/17/19 21:00 Peridex MUCOUS MEM BID ATUL Divalproex Sodium 1,000 mg 05/18/19 09:00 Depakote PO DAILY ATUL Divalproex Sodium 500 mg 05/17/19 21:00 Depakote PO HS ATUL Divalproex Sodium 250 mg 05/17/19 21:00 Depakote PO HS ATUL Heparin Sodium (Porcine) 0 unit 05/17/19 11:55 Heparin IV PER PROTOCOL PRN Low PTT Protocol Hydromorphone HCl 1 mg 05/17/19 13:52 Dilaudid IVP Q4HR PRN Pain Norepinephrine Bitartrate 32 250 mls @ 1.765 mls/hr 05/17/19 10:00 05/17/19 17:21 mg/ Sodium Chloride IV 0 mcg/kg/min .Q24H ATUL 0 mls/hr Titration Protocol 0.05 MCG/KG/MIN Levofloxacin 750 mg/ IV 150 mls @ 100 mls/hr 05/18/19 09:00 Solution IVPB Q24HR ATUL Piperacillin Sod/Tazobactam 100 mls @ 25 mls/hr 05/17/19 16:00 05/17/19 16:28 Sod 3.375 gm/ Sodium Chloride IVPB 05/27/19 16:01 25 mls/hr Q8HR ATUL Administration Sodium Chloride 1,000 mls @ 100 mls/hr 05/17/19 11:00 05/17/19 12:12 Saline 0.9% IV 100 mls/hr .Q10H ATUL Administration Heparin Sodium/Sodium Chloride 250 mls @ 9.036 mls/hr 05/17/19 12:00 05/17/19 12:11 25,000 unit/ Sodium Chloride IV 12 units/kg/hr .Q24H ATUL 9.036 mls/hr Administration Protocol 12 UNITS/KG/HR Propofol 1,000 mg/ IV Solution 100 mls @ 0 mls/hr 05/17/19 14:00 05/17/19 17:20 IV 20 mcg/kg/min .Q0M ATUL 9.036 mls/hr Titration Protocol Titrate Miscellaneous Information 1 each 05/17/19 10:48 Pneumonia Protocol Utilized PO ONCE PRN Per Protocol Pantoprazole Sodium 40 mg 05/18/19 09:00 Protonix IVP DAILY ATUL Intake and Output 05/17/19 05/17/19 05/17/19 06:59 14:59 22:59 Intake Total 501.534 6568.103 Output Total 1300 40 Balance -393.539 8714.103 Intake: IV 450 1400 Levofloxacin 750Mg-D5w 150 Pmx 750 mg In Dextrose/ Water 1 150ml.bag @ 100 mls/hr IVPB ONCE STA Rx#: [id number] Potassium Chloride 10 meq 100 100 In Water For Injection 1 100ml.bag @ 100 mls/hr IVPB Q1H [facility] Rx#: [id number] Sodium Chloride 0.9% 1, 200 300 000 ml @ 100 mls/hr IV . Q10H [facility] Rx#:[id number] Sodium Chloride 0.9% 1, 1000 000 ml @ 999 mls/hr IV . Q1H1M ONE Rx#:[id number] Intake, IV Titration 4.883 24.103 Amount Norepinephrine 32 mg In 4.883 4.601 Sodium Chloride 0.9% 218 ml @ 0.05 MCG/KG/MIN 1. 765 mls/hr IV .Q24H [facility] Rx#:[id number] Propofol 1,000 mg In 19.502 Empty Bag 1 bag @ Titrate IV .Q0M [facility] Rx#: [id number] Output: Urine 1300 40 Other: Weight 75.296 kg Patient Weight 05/18/19 06:59 Weight 75.296 kg 05/17/19 10:14 05/17/19 10:14
--- NOTE | 2019-05-17 17:38 | XR ---
EXAMINATION TYPE: XR chest 1V portable DATE OF EXAM: 05/17/2019 COMPARISON: Today HISTORY: Check tube placement TECHNIQUE: Single frontal view of the chest is obtained. FINDINGS: There is nasogastric tube that appears to be looped on itself in the stomach. Endotracheal tube is 6 cm from the terell. There is right jugular catheter with tip in the superior vena cava. Th ere is some pleural thickening and atelectasis at the right lung base. There is no heart failure. There is moderate size right pneumothorax of more than 50%. Trachea is midline. IMPRESSION: There is new large right pneumothorax compared to exam earlier today. Atelectasis at the right lung base. No heart failure. Nasogastric tube in good position. Exam results were discussed with the patient's nurse on the floor Emilee at 5:45 PM.
--- NOTE | 2019-05-17 18:00 | P.OP ---
Date of Procedure: 05/17/19 Preoperative Diagnosis: Right pneumothorax Postoperative Diagnosis: Same Procedure(s) Performed: Right thoravent placement Anesthesia: local Surgeon: Kaushik Deluca Collections Clerk #1: Jamie Damon Estimated Blood Loss (ml): 1 Pathology: none sent Condition: stable Disposition: ICU Indications for Procedure: 58-year-old male with Down syndrome presented in full cardiac arrest earlier today. Placed in ICU. Chest x-ray at 5 PM demonstrated 50% right pneumothorax. I was consulted for urgent treatment of pneumothorax. Operative Findings: Chest x-ray demonstrates 50% right pneumothorax. Description of Procedure: The right anterior superior chest was sterilely prepped and draped. 1% lidocaine was used for anesthesia. Air was aspirated and the second interspace anteriorly. After instillation of lidocaine here an incision was made with an 11 blade and a 13-Kazakh thoravent was placed without difficulty into the pleural space. Was secured to the skin with the standard attachments and connected to suction. A large pneumothorax was evacuated and then the leak stopped. Chest x-ray was ordered. Patient tolerated the procedure well.
--- NOTE | 2019-05-17 18:35 | XR ---
EXAMINATION TYPE: XR chest 1V portable DATE OF EXAM: 05/17/2019 COMPARISON: Today HISTORY: Chest tube TECHNIQUE: Single frontal view of the chest is obtained. FINDINGS: There is right-sided chest tube that appears in good position over the right upper lobe. T here is no sign of pneumothorax. Trachea is midline. Endotracheal tube is 6.5 cm from the terell. The re is nasogastric tube. There is no heart failure. There is right jugular catheter with tip in the patel perior vena cava. IMPRESSION: There is clearing of the pneumothorax compared to last exam. No heart failure. pleural reaction and atelectasis at the right lung base.
[2019-05-17 18:44] LABS: Glucose,Whole Blood 133 mg/dL (75-99)
[2019-05-17] MEDS ORDERED: FUROSEMIDE 10 MG/ML 10 ML VIAL IV STA (20:42)
[2019-05-17] MEDS ORDERED: DIVALPROEX 250 MG TABLET.DR PO SCH (21:00)
[2019-05-17] MEDS ORDERED: DIVALPROEX 500 MG TABLET.DR PO SCH (21:00)
--- NOTE | 2019-05-17 21:24 | P.HPIM ---
History of Present Illness H&P Date: 05/17/19 Chief Complaint: Cardiac arrest History of presenting complaint: This is a 58-year-old patient, who follows with visiting physicians, also resident of [facility] assisted living. Patient's brother Bill is legal guardian. Patient's chronic stable medical conditions include Down syndrome, urinary and stool incontinence, hyperlipidemia, hypertension, hypothyroid, SIADH, seizure disorder. Had a baseline patient not able to speak. Make some sounds. Does follow commands. Can't feed himself to the. 2. Patient does have a history of aspiration off-and-on. Patient's primary much wheelchair- bound. Patient was apparently having a meal and with the staff turned around and around his head rolled back. And patient stopped breathing. Cardiac arrest was called. Patient's downtime was about 40 minutes. Patient did receive epinephrine. Initially patient's port to the ER at [facility] and patient received 3 epinephrines and was intubated. 4. Also Robitussin the oropharynx during intubation. Central line was placed. Patient became hypotensive was given levo fed. And also started antibiotics. Patient also given fluid boluses. Patient is also to [facility] here. In the ICU currently on the ventilator. FiO2 60 with PEEP of 5. Drips include epinephrine, IV heparin, levo fed, propofol. Patient did desaturate in the afternoon and was found to have a pneumothorax. Cardiothoracic surgery was consulted and they did put her Thora-vent. Patient was seen by Dr. Maldonado from critical care and also the neurologist. Review of systems cannot. Patient is intubated Physical examination: VITAL SIGNS: 99.4, 92, 20, 95/70, 96% on the ventilator GENERAL: BMI 27.6, laying in bed intubated. EYES: Pupils equal. Conjunctiva normal. HEENT: External appearance of nose and ears normal, oral cavity grossly normal, endotracheal tube in place. NECK: JVD not raised; masses not palpable. HEART: First and second heart sounds are normal; no edema. LUNGS: Respiratory rate normal; decreased breath sounds. ABDOMEN: Soft, nontender, liver spleen not palpable, no masses palpable. PSYCH: Patient intubatedl. NEUROLOGICAL: [Cranial nerves grossly intact; no facial asymmetry, does respond to pain, bilateral foot drop, pupils reactive sluggish, absent corneal reflex LYMPHATICS: No lymph nodes palpable in the axilla and neck INVESTIGATIONS, reviewed in the clinical context: White count 7.6 hemoglobin 13.3 platelets 134 ABGs show pH of 7.42 pO2 of 144 Potassium 3.1. 23 creatinine 0.64 Lactic acid 4.6 AST 150 ALT 142 troponin 0.336 Chest x-ray film personally reviewed by me-shows some infiltrates EKG tracing personally reviewed by me shows some ST depression in V2 to V6 and then. Leads 1 and aVL Computed tomography scan of the brain-chronic encephalomalacia anterior right frontal lobe suggesting sequela of prior vascular traumatic insult new from 2012, progressive moderate hydrocephalus EEG-suggestive of anoxic/metabolic encephalopathy Repeat chest x-ray later showed right-sided pneumothorax Assessment: -Cardiac arrest secondary to the case secondary to choking on food, with downtime about 40 minutes in the field -Acute hypoxic respiratory failure requiring ventilator support -Right-sided pneumothorax now with the Thora-vent -Down syndrome, with severe cognitive impairment -Chronic medical debility patient is wheelchair bound -Hyperlipidemia -Chronic seizure disorder -Hypothyroid -Chronic urinary stool incontinent -Chronic SIADH -Cholerigenic shock requiring levo fed -Aspiration pneumonia and altered consciousness -Acute anoxic brain injury secondary to cardiac arrest -CODE STATUS DO NOT RESUSCITATE Plan: -Patient with ICU. Drips include epinephrine, IV heparin, levo fed, palpable. Also has a Thora-vent for the right-sided pneumothorax. Is on the ventilator. Consultants include senior science consultant, cardiology, neurology, cardiothoracic surgery. Overall prognosis guarded. Antibiotics for aspiration pneumonia. Past Medical History Past Medical History: Dementia, Hyperlipidemia, Hypertension, Seizure Disorder, Thyroid Disorder Additional Past Medical History / Comment(s): Down's syndrome (limited verbal abilities), possible CVA, no longer ambulatory thought possibly d/t CVA, incontinent urine and stool, last seizure about 1 month ago, chronic hyponatremia 2ndary to SIADH. 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 Past Anesthesia/Blood Transfusion Reactions: No Reported Reaction Smoking Status: Never smoker - Past Family History Father Family Medical History: Congestive Heart Failure (CHF) Additional Family Medical History / Comment(s): Father of CHF at the age of 65 yrs. Mother Family Medical History: Hyperlipidemia, Neurologic Disorder Additional Family Medical History / Comment(s): Mother from progressive nuclear palsey. Medications and Allergies Home Medications Medication Instructions Recorded Confirmed Type Imipramine HCl [Tofranil] 25 mg PO HS 02/23/14 05/17/19 History Multivitamins, Thera [Multivitamin 1 tab PO DAILY 02/23/14 05/17/19 History (formulary)] Primidone [Mysoline] 25 mg PO HS 02/23/14 05/17/19 History traZODone HCL [traZODone] 300 mg PO HS 02/23/14 05/17/19 History Acetaminophen Tab [Tylenol Tab] 500 mg PO Q6H 05/17/19 05/17/19 History Aspirin [[place] Aspirin EC] 81 mg PO DAILY 05/17/19 05/17/19 History Beneprotein Powder 1 scoop PO BID 05/17/19 05/17/19 History Carbamide Peroxide [Debrox Otic] 5 drops BOTH EARS BID PRN 05/17/19 05/17/19 History Clindamycin Topical Soln 1 applic TOPICAL BID 05/17/19 05/17/19 History [Cleocin-T Topical Soln] Divalproex [Depakote] 1,000 mg PO DAILY 05/17/19 05/17/19 History Divalproex [Depakote] 250 mg PO HS 05/17/19 05/17/19 History Divalproex [Depakote] 500 mg PO HS 05/17/19 05/17/19 History Ibuprofen 200 mg PO Q6H PRN 05/17/19 05/17/19 History Ketoconazole [Ketoconazole 2%] 1 applic TOPICAL DAILY 05/17/19 05/17/19 History LORazepam [Ativan] 1 mg PO DAILY PRN 05/17/19 05/17/19 History Lacosamide [Vimpat] 100 mg PO BID 05/17/19 05/17/19 History Levothyroxine Sodium [Synthroid] 137 mcg PO DAILY 05/17/19 05/17/19 History Loperamide [Imodium] 2 mg PO QID PRN 05/17/19 05/17/19 History Magnesium Hydroxide [Milk of 2,400 mg PO DAILY PRN 05/17/19 05/17/19 History Magnesia] Melatonin 5 mg PO HS 05/17/19 05/17/19 History Nystatin 1 applic TOPICAL BID PRN 05/17/19 05/17/19 History Omeprazole [PriLOSEC] 20 mg PO DAILY 05/17/19 05/17/19 History Sennosides/Docusate Sodium [Senna 2 tab PO HS 05/17/19 05/17/19 History Plus 8.6-50 mg Tablet] Simvastatin [Zocor] 20 mg PO HS 05/17/19 05/17/19 History Sucralfate [Carafate] 1 gm PO BID-W/MEALS 05/17/19 05/17/19 History Triamcinolone Acetonide 1 applic TOPICAL HS 05/17/19 05/17/19 History [Triamcinolone Acetonide 0.025%] Allergies Allergy/AdvReac Type Severity Reaction Status Date / Time phenytoin sodium Allergy Unknown Verified 05/17/19 14:49 [From Dilantin] phenytoin sodium extended Allergy Unknown Verified 05/17/19 14:49 [From Dilantin] Physical Exam Vitals: Vital Signs Temp Pulse Resp BP Pulse Ox 05/17/19 19:00 82 20 96 05/17/19 18:45 82 20 96 05/17/19 18:30 81 20 95/61 97 05/17/19 18:15 83 20 95/61 97 05/17/19 18:00 89 20 97 05/17/19 17:45 85 22 96 05/17/19 17:30 86 20 118/75 95 05/17/19 17:15 85 20 118/75 95 05/17/19 17:00 87 20 95/70 95 05/17/19 16:45 91 20 93 L 05/17/19 16:30 91 20 94 L 05/17/19 16:15 92 20 95/70 96 05/17/19 16:00 99.4 F 90 20 111/76 97 05/17/19 15:45 90 20 71/48 98 05/17/19 15:37 91 05/17/19 15:30 96 20 85/60 81 L 05/17/19 15:15 92 20 78/54 95 05/17/19 15:00 90 20 93 L 05/17/19 14:45 91 20 100/67 95 05/17/19 14:30 92 20 92/65 98 05/17/19 14:15 93 20 93/68 95 05/17/19 14:00 90 20 99/61 97 05/17/19 13:45 85 20 109/75 98 05/17/19 13:30 88 20 105/71 99 05/17/19 13:15 89 20 99/73 100 05/17/19 13:00 97.4 F L 86 20 127/72 99 05/17/19 12:45 124/75 05/17/19 12:30 82 20 126/82 99 05/17/19 12:15 95.6 F L 82 14 126/82 99 05/17/19 11:30 80 16 104/89 99 05/17/19 11:01 94.0 F L 72 14 140/95 100 05/17/19 11:00 71 16 133/90 100 05/17/19 10:30 68 16 85/67 100 05/17/19 10:00 67 16 112/75 100 05/17/19 09:50 67 20 112/75 100 Intake and Output 05/17/19 05/17/19 05/17/19 06:59 14:59 22:59 Intake Total 843.674 7637.204 Output Total 1300 80 Balance -494.910 8227.204 Intake: IV 450 1675 Levofloxacin 750Mg-D5w 150 Pmx 750 mg In Dextrose/ Water 1 150ml.bag @ 100 mls/hr IVPB ONCE STA Rx#: [id number] Piperacillin-Tazobactam 3 75 .375 gm In Sodium Chloride 0.9% 100 ml @ 25 mls/hr IVPB Q8HR ATUL Rx# :[id number] Potassium Chloride 10 meq 100 100 In Water For Injection 1 100ml.bag @ 100 mls/hr IVPB Q1H ATUL Rx#: [id number] Sodium Chloride 0.9% 1, 200 500 000 ml @ 100 mls/hr IV . Q10H ATUL Rx#:[id number] Sodium Chloride 0.9% 1, 1000 000 ml @ 999 mls/hr IV . Q1H1M ONE Rx#:[id number] Intake, IV Titration 4.883 87.204 Amount Heparin Sod,Pork in 0.45% 63.101 NaCl 25,000 unit In 0.45 % NaCl 1 250ml.bag @ 12 UNITS/KG/HR 9.036 mls/hr IV .Q24H ATUL Rx#: [id number] Norepinephrine 32 mg In 4.883 4.601 Sodium Chloride 0.9% 218 ml @ 0.05 MCG/KG/MIN 1. 765 mls/hr IV .Q24H ATUL Rx#:[id number] Propofol 1,000 mg In 19.502 Empty Bag 1 bag @ Titrate IV .Q0M ATUL Rx#: [id number] Output: Urine 1300 80 Other: Voiding Method Indwelling Catheter Indwelling Catheter Weight 75.296 kg ABP, PAP, CO, CI - Last 8 Hours Arterial Blood Pressure 110/59 Arterial Blood Pressure 109/59 Arterial Blood Pressure 103/57 Arterial Blood Pressure 32/20 Arterial Blood Pressure 108/60 Arterial Blood Pressure 100/54 Arterial Blood Pressure 120/64 Arterial Blood Pressure 133/66 Arterial Blood Pressure 131/68 Arterial Blood Pressure 115/63 Arterial Blood Pressure 121/71 Arterial Blood Pressure 104/65 Arterial Blood Pressure 112/69 Arterial Blood Pressure 133/79 Arterial Blood Pressure 73/47 Arterial Blood Pressure 94/56 Arterial Blood Pressure 103/64 Results CBC & Chem 7: 05/17/19 10:14 05/17/19 18:15 Labs: Abnormal Lab Results - Last 24 Hours (Table) 05/17/19 05/17/19 05/17/19 Range/Units 09:48 10:14 10:14 RBC 4.08 L (4.30-5.90) m/uL MCV 101.1 H (80.0-100.0) fL Plt Count 134 L (150-450) k/uL Lymphocytes # (Manual) 0.68 L (1.0-4.8) k/uL Metamyelocytes # (Man) 0.08 H (0) k/uL APTT (22.0-30.0) sec ABG pO2 (83-108) mmHg ABG Total CO2 (19-24) mmol/L ABG O2 Saturation (94-97) % Potassium 3.1 L (3.5-5.1) mmol/L Chloride 108 H (98-107) mmol/L BUN 23 H (9-20) mg/dL Creatinine 0.64 L (0.66-1.25) mg/dL Glucose 152 H (74-99) mg/dL POC Glucose (mg/dL) 134 H (75-99) mg/dL Plasma Lactic Acid David (0.7-2.0) mmol/L Calcium 7.9 L (8.4-10.2) mg/dL AST 150 H (17-59) U/L ALT 142 H (21-72) U/L Ammonia (<30) umol/L Creatine Kinase 284 H (55-170) U/L Troponin I (0.000-0.034) ng/mL Total Protein 6.1 L (6.3-8.2) g/dL Albumin 2.7 L (3.5-5.0) g/dL Ur Specific [place] (1.001-1.035) Urine Protein (Negative) Urine Glucose (UA) (Negative) Urine Ketones (Negative) Urine Blood (Negative) Ur Leukocyte Esterase (Negative) Urine RBC (0-5) /hpf Urine WBC (0-5) /hpf Urine Mucus (None) /hpf 05/17/19 05/17/19 05/17/19 Range/Units 10:14 10:14 10:20 RBC (4.30-5.90) m/uL MCV (80.0-100.0) fL Plt Count (150-450) k/uL Lymphocytes # (Manual) (1.0-4.8) k/uL Metamyelocytes # (Man) (0) k/uL APTT (22.0-30.0) sec ABG pO2 144 H (83-108) mmHg ABG Total CO2 25 H (19-24) mmol/L ABG O2 Saturation 99.2 H (94-97) % Potassium (3.5-5.1) mmol/L Chloride (98-107) mmol/L BUN (9-20) mg/dL Creatinine (0.66-1.25) mg/dL Glucose (74-99) mg/dL POC Glucose (mg/dL) (75-99) mg/dL Plasma Lactic Acid David 4.6 H* (0.7-2.0) mmol/L Calcium (8.4-10.2) mg/dL AST (17-59) U/L ALT (21-72) U/L Ammonia (<30) umol/L Creatine Kinase (55-170) U/L Troponin I 0.336 H* (0.000-0.034) ng/mL Total Protein (6.3-8.2) g/dL Albumin (3.5-5.0) g/dL Ur Specific [place] (1.001-1.035) Urine Protein (Negative) Urine Glucose (UA) (Negative) Urine Ketones (Negative) Urine Blood (Negative) Ur Leukocyte Esterase (Negative) Urine RBC (0-5) /hpf Urine WBC (0-5) /hpf Urine Mucus (None) /hpf 05/17/19 05/17/19 05/17/19 Range/Units 12:59 13:59 15:17 RBC (4.30-5.90) m/uL MCV (80.0-100.0) fL Plt Count (150-450) k/uL Lymphocytes # (Manual) (1.0-4.8) k/uL Metamyelocytes # (Man) (0) k/uL APTT (22.0-30.0) sec ABG pO2 58 L* (83-108) mmHg ABG Total CO2 26 H (19-24) mmol/L ABG O2 Saturation 90.6 L (94-97) % Potassium (3.5-5.1) mmol/L Chloride (98-107) mmol/L BUN (9-20) mg/dL Creatinine (0.66-1.25) mg/dL Glucose (74-99) mg/dL POC Glucose (mg/dL) 152 H (75-99) mg/dL Plasma Lactic Acid David 3.9 H* (0.7-2.0) mmol/L Calcium (8.4-10.2) mg/dL AST (17-59) U/L ALT (21-72) U/L Ammonia (<30) umol/L Creatine Kinase (55-170) U/L Troponin I (0.000-0.034) ng/mL Total Protein (6.3-8.2) g/dL Albumin (3.5-5.0) g/dL Ur Specific [place] (1.001-1.035) Urine Protein (Negative) Urine Glucose (UA) (Negative) Urine Ketones (Negative) Urine Blood (Negative) Ur Leukocyte Esterase (Negative) Urine RBC (0-5) /hpf Urine WBC (0-5) /hpf Urine Mucus (None) /hpf 05/17/19 05/17/19 05/17/19 Range/Units 16:15 16:20 16:20 RBC (4.30-5.90) m/uL MCV (80.0-100.0) fL Plt Count (150-450) k/uL Lymphocytes # (Manual) (1.0-4.8) k/uL Metamyelocytes # (Man) (0) k/uL APTT (22.0-30.0) sec ABG pO2 (83-108) mmHg ABG Total CO2 (19-24) mmol/L ABG O2 Saturation (94-97) % Potassium (3.5-5.1) mmol/L Chloride (98-107) mmol/L BUN (9-20) mg/dL Creatinine (0.66-1.25) mg/dL Glucose (74-99) mg/dL POC Glucose (mg/dL) (75-99) mg/dL Plasma Lactic Acid David 2.7 H* (0.7-2.0) mmol/L Calcium (8.4-10.2) mg/dL AST (17-59) U/L ALT (21-72) U/L Ammonia 59 H (<30) umol/L Creatine Kinase (55-170) U/L Troponin I (0.000-0.034) ng/mL Total Protein (6.3-8.2) g/dL Albumin (3.5-5.0) g/dL Ur Specific [place] 1.038 H (1.001-1.035) Urine Protein 1+ H (Negative) Urine Glucose (UA) Trace H (Negative) Urine Ketones 1+ H (Negative) Urine Blood Large H (Negative) Ur Leukocyte Esterase Trace H (Negative) Urine RBC >182 H (0-5) /hpf Urine WBC 38 H (0-5) /hpf Urine Mucus Rare H (None) /hpf 05/17/19 05/17/19 05/17/19 Range/Units 16:32 18:15 18:33 RBC (4.30-5.90) m/uL MCV (80.0-100.0) fL Plt Count (150-450) k/uL Lymphocytes # (Manual) (1.0-4.8) k/uL Metamyelocytes # (Man) (0) k/uL APTT 119.7 H* (22.0-30.0) sec ABG pO2 (83-108) mmHg ABG Total CO2 (19-24) mmol/L ABG O2 Saturation (94-97) % Potassium (3.5-5.1) mmol/L Chloride (98-107) mmol/L BUN (9-20) mg/dL Creatinine (0.66-1.25) mg/dL Glucose (74-99) mg/dL POC Glucose (mg/dL) 133 H (75-99) mg/dL Plasma Lactic Acid David (0.7-2.0) mmol/L Calcium (8.4-10.2) mg/dL AST (17-59) U/L ALT (21-72) U/L Ammonia (<30) umol/L Creatine Kinase (55-170) U/L Troponin I 1.700 H* (0.000-0.034) ng/mL Total Protein (6.3-8.2) g/dL Albumin (3.5-5.0) g/dL Ur Specific [place] (1.001-1.035) Urine Protein (Negative) Urine Glucose (UA) (Negative) Urine Ketones (Negative) Urine Blood (Negative) Ur Leukocyte Esterase (Negative) Urine RBC (0-5) /hpf Urine WBC (0-5) /hpf Urine Mucus (None) /hpf Microbiology - Last 24 Hours (Table) 05/17/19 13:14 Sputum Culture - Preliminary Sputum Thrombosis Risk Factor Assmnt - Choose All That Apply Any of the Below Risk Factors Present?: Yes Each Factor Represents 1 point: Age 41-60 years, Medical pt on bed rest, Obesity (BMI >25) Other Risk Factors: Yes Each Risk Factor Represents 2 Points: Patient confined to bed Other congenital or acquired thrombophilia - If yes, enter type in comment: No Thrombosis Risk Factor Assessment Total Risk Factor Score: 5 Thrombosis Risk Factor Assessment Level: High Risk
[2019-05-17] MEDS: VALPROIC ACID ORAL SOLN 250 MG/5 ML CUP PO SCH (21:36)
[2019-05-17] MEDS: CHLORHEXIDINE GLUCONATE 15 ML CUP MUCOUS MEM SCH (21:36)
--- NOTE | 2019-05-17 23:12 | OP ---
OPERATIVE REPORT OPERATIVE REPORT: Placement of a right radial arterial line. PREOPERATIVE DIAGNOSIS: Acute hypoxic respiratory failure. POSTOPERATIVE DIAGNOSIS: Acute hypoxic respiratory failure. ANESTHESIA USED: None deployed. PROCEDURE: The right wrist was prepared in a sterile fashion and drapes were applied. The right radial artery was palpated, cannulated, and a guidewire was placed. A Cook's catheter was inserted over the guidewire. The guidewire was removed. Good blood flow and good waveform were noted. Line was secured using 3.0 silk sutures. No evidence of any immediate complications. MMODL / IJN: [id number] /
[2019-05-17] MEDS ORDERED: ACETAMINOPHEN IV (For NPO) 1,000 MG in EMPTY BAG 1 BAG IVPB PRN (23:50)
[2019-05-17] MEDS ORDERED: SODIUM CHLORIDE 0.9% 500 ML 500 ML IV ONE (23:50)
[2019-05-18 00:09] LABS: Glucose,Whole Blood 136 mg/dL (75-99)
[2019-05-18] MEDS: PIPERACILLIN-TAZOBACTAM 3.375 GM in SODIUM CHLORIDE 0.9% 100 ML IVPB SCH ×4 (00:26→23:19)
[2019-05-18] MEDS: SODIUM CHLORIDE 0.9% 1,000 ML IV SCH ×3 (00:28→18:06)
[2019-05-18] MEDS: PROPOFOL 1,000 MG in EMPTY BAG 1 BAG IV SCH (00:36)
[2019-05-18 03:33] LABS: Basophils # (A) 0.1 k/uL (0-0.2); Basophils % (A) 1 %; Eosinophils % (A) 0 %; HCT 33.9 % (39.0-53.0); HGB 10.6 gm/dL (13.0-17.5); Lymphocytes # (A) 0.5 k/uL (1.0-4.8); Lymphocytes % (A) 6 %; MCH 31.3 pg (25.0-35.0); MCHC 31.1 g/dL (31.0-37.0); MCV 100.5 fL (80.0-100.0); Macrocytosis Slight; Mean Platelet Volume 8.6; Monocytes # (A) 0.4 k/uL (0-1.0); Monocytes % (A) 5 %; Neutrophils # (A) 7.7 k/uL (1.3-7.7); Neutrophils % (A) 88 %; Platelet Count 114 k/uL (150-450); RBC 3.38 m/uL (4.30-5.90); RDW 14.4 % (11.5-15.5); WBC 8.8 k/uL (3.8-10.6)
[2019-05-18 03:42] LABS: INR 1.2 (<1.2); Partial Thromboplastin Time 59.5 sec (22.0-30.0)
[2019-05-18 04:11] LABS: African American GFR (CKD) >90 (>60 ml/min/1.73 sqM); Anion Gap 5 mmol/L; Blood Urea Nitrogen 25 mg/dL (9-20); Calcium 7.2 mg/dL (8.4-10.2); Carbon Dioxide 22 mmol/L (22-30); Chloride 110 mmol/L (98-107); Cholesterol 97 mg/dL (<200); Glucose 142 mg/dL (74-99); HDL Cholesterol 31 mg/dL (40-60); LDL Cholesterol,Calculated 41 mg/dL (0-99); Magnesium 1.5 mg/dL (1.6-2.3); Phosphorus 2.9 mg/dL (2.5-4.5); Potassium 4.2 mmol/L (3.5-5.1); Sodium 137 mmol/L (137-145); Triglycerides 126 mg/dL (<150)
[2019-05-18] MEDS ORDERED: Magnesium Replacement Protocol 1 EACH MISC MISCELLANE PRN (04:25)
[2019-05-18] MEDS: MAGNESIUM SULFATE-D5W PMX 1 GM in DEXTROSE/WATER 1 100ML.BAG IVPB SCH ×2 (04:42→06:23)
[2019-05-18 06:54] LABS: Glucose,Whole Blood 152 mg/dL (75-99)
[2019-05-18 07:11] LABS: ABG Base Excess -0.4 mmol/L; ABG HCO3 23 mmol/L (21-25); ABG Oxygen Saturation 94.1 % (94-97); ABG PCO2 31 mmHg (35-45); ABG PH 7.49 (7.35-7.45); ABG PO2 66 mmHg (83-108); ABG TCO2 24 mmol/L (19-24)
[2019-05-18 07:13] LABS: Allen Test Performed? no
[2019-05-18] MEDS: CHLORHEXIDINE GLUCONATE 15 ML CUP MUCOUS MEM SCH ×2 (07:58→21:18)
--- NOTE | 2019-05-18 08:37 | XR ---
EXAMINATION TYPE: XR chest 1V portable DATE OF EXAM: 05/18/2019 COMPARISON: Prior chest x-ray 05/17/2019 HISTORY: Intubated TECHNIQUE: Single frontal view of the chest is obtained. FINDINGS: Endotracheal tube, NG tube are overlying appropriate positions. There is a right-sided ple ural drain in place, distal tip is coursing towards the mediastinum. Right jugular central venous cat heter is present with the distal tip overlying the right atrium. Bibasilar increased density is prese nt. Small right apical pneumothorax is present. Heart size is stable. IMPRESSION: Findings are similar to prior exam. May be basilar atelectasis, difficult to exclude sma ll effusion. Small right apical pneumothorax.
[2019-05-18] MEDS ORDERED: DIVALPROEX 500 MG TABLET.DR PO SCH (09:00)
[2019-05-18] MEDS ORDERED: SODIUM CHLORIDE 0.9% 500 ML 500 ML IV ONE (09:04)
[2019-05-18] MEDS: LEVOFLOXACIN 750MG-D5W PMX 750 MG in DEXTROSE/WATER 1 150ML.BAG IVPB SCH (09:14)
[2019-05-18] MEDS: PANTOPRAZOLE 40 MG/10 ML VIAL IVP SCH (09:14)
[2019-05-18] MEDS: ASPIRIN 325 MG TAB PO SCH (09:15)
[2019-05-18] MEDS: VALPROIC ACID ORAL SOLN 250 MG/5 ML CUP PO SCH ×2 (09:17→21:18)
[2019-05-18 09:42] VITALS: BMI 28.3
[2019-05-18] MEDS: HYDROmorphone 1 MG/ML 1 ML SYRINGE IVP PRN ×2 (10:02→14:21)
--- NOTE | 2019-05-18 10:41 | P.PN ---
Subjective Progress Note Date: 05/18/19 Principal diagnosis: Acute hypoxic respiratory failure, cardiac arrest. This is a 58-year-old white male with history of Down syndrome, patient lives in a senior living, and he is wheelchair ridden. Patient was eating and he had a sudden episode of choking, became unresponsive, and CPR was started by senior living staff. EMS was called, and CPR continued. Patient was brought into the emergency room at [facility], CPR was continued, patient received 3 epinephrine is, he was intubated, and food products were witnessed in the oropharynx during intubation. Patient had a central line placed by ER physician at [facility], he was hypotensive requiring levo fed, and he was started on antibiotics empirically. Patient received a total of 2 L of fluid boluses during CPR, and total down time was over 40 minutes. Patient was brought into our ER as a transfer, CT of the brain was performed, and it showed chronic encephalomalacia anterior right frontal lobe suggesting sequela of prior vascular or traumatic insult, new from 2013. It also showed progressive moderate hydrocephalus compared to CT in 2013. Correlate for possible NPH. There was no evidence of intracranial hemorrhage or midline shift. Chest x-ray showed bibasilar opacities, and increased interstitial markings. Right IJ central line was noted in place, and endotracheal tube was noted to be in proper position. Upon evaluating the patient in the ICU, he is now on assist control mode of mechanical ventilation, tidal volume is 400 rate is 20 FiO2 is 50% and PEEP is 5. ABG on these vent settings is pending. Patient was placed empirically on antibiotics in the form of Zosyn and Levaquin, lactic acid was noted to be elevated, hence he received fluid boluses almost 3 L were given so far. Lactic acid is pending all his labs were reviewed CBC was relatively normal. ABG on 100% earlier showed a pO2 of 144 pCO2 of 37 pH of 7.42. Basic metabolic profile was normal except for low potassium of 3.1 and BUN and creatinine normal. Lactic acid on presentation was 4.6. Troponin noted to be elevated at 0.336. Valproic acid level is therapeutic Patient was reevaluated today on 05/18/2019, remains in the ICU, on mechanical ventilation. Patient developed a right sided pneumothorax on the right side yesterday, and this was noted on a chest x-ray done to evaluate orogastric tube placement. His pneumothorax was not seen on his earlier chest x-ray when he came into the ER. And most likely the pneumothorax was related to his right internal jugular central line placement or could be related to CPR. It is at this point unknown. Could be either or. Patient had a large right-sided pneumothorax, and Dr. Deluca happened to be in the ICU at that time, he was consulted and he placed a thoravent in the right upper anterior chest. Significant improvement noted immediately. And almost near complete expansion of the right lung. Patient is presently on the following vent settings. Assist control rate of 20 tidal volume of 400 FiO2 is 55% PEEP is 5. He is off norepinephrine, maintained on propofol at 20 mcg/kg/m. Seems to be calm, sedated, and even on a lower dose of propofol, the patient does not seem to respond. He was seen by neurology on consultation, and it is felt that the patient may have sustained anoxic brain injury. EEG report was noted. Labs today were all reviewed including his ABG chest x-ray. And his ABG showed PO2 of 66 pCO2 of 31 pH of 7.49 and this was on 60% hence FiO2 was cut down to 55%. Patient received multiple fluid boluses yesterday, and his urine output was poor, then he was given 1 dose of Lasix, and he had a significant response, diuresed almost 2 L. Lactic acid is a bit elevated today, hence the patient will receive fluid boluses again. And we'll continue to monitor his renal output closely. CBC showed WBC count of 8.8 hemoglobin 10.6 PTT is 59.5. Basic metabolic profile is normal renal profile is normal. Chest x-ray showed small tiny right apical pneumothorax. And the chest tube is in the right place. Objective - Vital Signs Vital signs: Vital Signs Temp 98 F 05/18/19 08:00 Pulse 74 05/18/19 10:00 Resp 20 05/18/19 10:00 BP 135/74 05/18/19 10:00 Pulse Ox 95 05/18/19 10:27 Intake & Output 05/17/19 05/18/19 05/18/19 18:59 06:59 18:59 Intake Total 2028.986 2440.242 0327.643 Output Total 1360 1300 70 Balance 668.986 501.576 5986.643 Weight 75.296 kg 77.3 kg 77.3 kg Intake: IV 2000 1625 1150 Levofloxacin 750Mg-D5w 150 150 Pmx 750 mg In Dextrose/ Water 1 150ml.bag @ 100 mls/hr IVPB ONCE STA Rx#: [id number] Piperacillin-Tazobactam 3 50 25 100 .375 gm In Sodium Chloride 0.9% 100 ml @ 25 mls/hr IVPB Q8HR [facility] Rx# :[id number] Potassium Chloride 10 meq 200 In Water For Injection 1 100ml.bag @ 100 mls/hr IVPB Q1H [facility] Rx#: [id number] Sodium Chloride 0.9% 1, 600 1100 400 000 ml @ 100 mls/hr IV . Q10H [facility] Rx#:[id number] Sodium Chloride 0.9% 1, 1000 000 ml @ 999 mls/hr IV . Q1H1M [facility] Rx#:[id number] Sodium Chloride 0.9% 500 500 500 ml 500 ml @ 999 mls/hr IV .Q31M [facility] Rx#:[id number] Intake, IV Titration 28.986 128.763 173.643 Amount Heparin Sod,Pork in 0.45% 63.101 NaCl 25,000 unit In 0.45 % NaCl 1 250ml.bag @ 12 UNITS/KG/HR 9.036 mls/hr IV .Q24H [facility] Rx#: [id number] Magnesium Sulfate-D5w Pmx 100 1 gm In Dextrose/Water 1 100ml.bag @ 100 mls/hr IVPB Q1H [facility] Rx#: [id number] Norepinephrine 32 mg In 9.484 Sodium Chloride 0.9% 218 ml @ 0.05 MCG/KG/MIN 1. 765 mls/hr IV .Q24H [facility] Rx#:[id number] Propofol 1,000 mg In 19.502 65.662 73.643 Empty Bag 1 bag @ Titrate IV .Q0M [facility] Rx#: [id number] Output: Urine 1360 1300 70 Other: Voiding Method Indwelling Catheter Indwelling Catheter ABP, PAP, CO, CI - Last Documented Arterial Blood Pressure 169/71 - Exam Physical Exam physical exam revealed a 58-year-old white male, with down syndrome features, on mechanical ventilation, sedated, in no distress. HEENT: Short neck, Neck is supple.] [No neck masses.] [No thyromegaly.] [No JVD.] Moist mucous membranes, endotracheal tube is intact, and orogastric tube is intact. Pupils are sluggish but responsive to light. Chest: [Clear throughout, no crackles, no rhonchi, no wheezes.] Cardiac Exam: [Normal S1 and S2, no S3 gallop, 2/6 systolic murmur throughout the precordium.] Abdomen: [Soft, nontender, no megaly, no rebound, no guarding, normal bowel sounds.] Extremities: [No clubbing, no edema, no cyanosis.] Evidence of upper and lower extremities atrophy, poor muscle tone. Good pulses bilaterally. Neurological Exam: [Patient is sedated, could not have a full assessment, unresponsive to any stimuli except to deep painful stimuli were and the patient is noted to withdraw from pain. Skin: No rashes. Psychiatric: Could not be assessed. Lymphatics: No lymphadenopathy. - Labs CBC & Chem 7: 05/18/19 03:25 05/18/19 03:25 Labs: Abnormal Lab Results - Last 24 Hours (Table) 05/17/19 05/17/19 05/17/19 Range/Units 10:14 10:14 10:14 RBC 4.08 L (4.30-5.90) m/uL Hgb (13.0-17.5) gm/dL Hct (39.0-53.0) % MCV 101.1 H (80.0-100.0) fL Plt Count 134 L (150-450) k/uL Lymphocytes # (1.0-4.8) k/uL Lymphocytes # (Manual) 0.68 L (1.0-4.8) k/uL Metamyelocytes # (Man) 0.08 H (0) k/uL INR (<1.2) APTT (22.0-30.0) sec ABG pH (7.35-7.45) ABG pCO2 (35-45) mmHg ABG pO2 (83-108) mmHg ABG Total CO2 (19-24) mmol/L ABG O2 Saturation (94-97) % Potassium 3.1 L (3.5-5.1) mmol/L Chloride 108 H (98-107) mmol/L BUN 23 H (9-20) mg/dL Creatinine 0.64 L (0.66-1.25) mg/dL Glucose 152 H (74-99) mg/dL POC Glucose (mg/dL) (75-99) mg/dL Plasma Lactic Acid David (0.7-2.0) mmol/L Calcium 7.9 L (8.4-10.2) mg/dL Magnesium (1.6-2.3) mg/dL AST 150 H (17-59) U/L ALT 142 H (21-72) U/L Ammonia (<30) umol/L Creatine Kinase 284 H (55-170) U/L Troponin I 0.336 H* (0.000-0.034) ng/mL Total Protein 6.1 L (6.3-8.2) g/dL Albumin 2.7 L (3.5-5.0) g/dL HDL Cholesterol (40-60) mg/dL Ur Specific [place] (1.001-1.035) Urine Protein (Negative) Urine Glucose (UA) (Negative) Urine Ketones (Negative) Urine Blood (Negative) Ur Leukocyte Esterase (Negative) Urine RBC (0-5) /hpf Urine WBC (0-5) /hpf Urine Mucus (None) /hpf 05/17/19 05/17/19 05/17/19 Range/Units 10:14 12:59 13:59 RBC (4.30-5.90) m/uL Hgb (13.0-17.5) gm/dL Hct (39.0-53.0) % MCV (80.0-100.0) fL Plt Count (150-450) k/uL Lymphocytes # (1.0-4.8) k/uL Lymphocytes # (Manual) (1.0-4.8) k/uL Metamyelocytes # (Man) (0) k/uL INR (<1.2) APTT (22.0-30.0) sec ABG pH (7.35-7.45) ABG pCO2 (35-45) mmHg ABG pO2 (83-108) mmHg ABG Total CO2 (19-24) mmol/L ABG O2 Saturation (94-97) % Potassium (3.5-5.1) mmol/L Chloride (98-107) mmol/L BUN (9-20) mg/dL Creatinine (0.66-1.25) mg/dL Glucose (74-99) mg/dL POC Glucose (mg/dL) 152 H (75-99) mg/dL Plasma Lactic Acid David 4.6 H* 3.9 H* (0.7-2.0) mmol/L Calcium (8.4-10.2) mg/dL Magnesium (1.6-2.3) mg/dL AST (17-59) U/L ALT (21-72) U/L Ammonia (<30) umol/L Creatine Kinase (55-170) U/L Troponin I (0.000-0.034) ng/mL Total Protein (6.3-8.2) g/dL Albumin (3.5-5.0) g/dL HDL Cholesterol (40-60) mg/dL Ur Specific [place] (1.001-1.035) Urine Protein (Negative) Urine Glucose (UA) (Negative) Urine Ketones (Negative) Urine Blood (Negative) Ur Leukocyte Esterase (Negative) Urine RBC (0-5) /hpf Urine WBC (0-5) /hpf Urine Mucus (None) /hpf 05/17/19 05/17/19 05/17/19 Range/Units 15:17 16:15 16:20 RBC (4.30-5.90) m/uL Hgb (13.0-17.5) gm/dL Hct (39.0-53.0) % MCV (80.0-100.0) fL Plt Count (150-450) k/uL Lymphocytes # (1.0-4.8) k/uL Lymphocytes # (Manual) (1.0-4.8) k/uL Metamyelocytes # (Man) (0) k/uL INR (<1.2) APTT (22.0-30.0) sec ABG pH (7.35-7.45) ABG pCO2 (35-45) mmHg ABG pO2 58 L* (83-108) mmHg ABG Total CO2 26 H (19-24) mmol/L ABG O2 Saturation 90.6 L (94-97) % Potassium (3.5-5.1) mmol/L Chloride (98-107) mmol/L BUN (9-20) mg/dL Creatinine (0.66-1.25) mg/dL Glucose (74-99) mg/dL POC Glucose (mg/dL) (75-99) mg/dL Plasma Lactic Acid David (0.7-2.0) mmol/L Calcium (8.4-10.2) mg/dL Magnesium (1.6-2.3) mg/dL AST (17-59) U/L ALT (21-72) U/L Ammonia 59 H (<30) umol/L Creatine Kinase (55-170) U/L Troponin I (0.000-0.034) ng/mL Total Protein (6.3-8.2) g/dL Albumin (3.5-5.0) g/dL HDL Cholesterol (40-60) mg/dL Ur Specific [place] 1.038 H (1.001-1.035) Urine Protein 1+ H (Negative) Urine Glucose (UA) Trace H (Negative) Urine Ketones 1+ H (Negative) Urine Blood Large H (Negative) Ur Leukocyte Esterase Trace H (Negative) Urine RBC >182 H (0-5) /hpf Urine WBC 38 H (0-5) /hpf Urine Mucus Rare H (None) /hpf 05/17/19 05/17/19 05/17/19 Range/Units 16:20 16:32 18:15 RBC (4.30-5.90) m/uL Hgb (13.0-17.5) gm/dL Hct (39.0-53.0) % MCV (80.0-100.0) fL Plt Count (150-450) k/uL Lymphocytes # (1.0-4.8) k/uL Lymphocytes # (Manual) (1.0-4.8) k/uL Metamyelocytes # (Man) (0) k/uL INR (<1.2) APTT 119.7 H* (22.0-30.0) sec ABG pH (7.35-7.45) ABG pCO2 (35-45) mmHg ABG pO2 (83-108) mmHg ABG Total CO2 (19-24) mmol/L ABG O2 Saturation (94-97) % Potassium (3.5-5.1) mmol/L Chloride (98-107) mmol/L BUN (9-20) mg/dL Creatinine (0.66-1.25) mg/dL Glucose (74-99) mg/dL POC Glucose (mg/dL) (75-99) mg/dL Plasma Lactic Acid David 2.7 H* (0.7-2.0) mmol/L Calcium (8.4-10.2) mg/dL Magnesium (1.6-2.3) mg/dL AST (17-59) U/L ALT (21-72) U/L Ammonia (<30) umol/L Creatine Kinase (55-170) U/L Troponin I 1.700 H* (0.000-0.034) ng/mL Total Protein (6.3-8.2) g/dL Albumin (3.5-5.0) g/dL HDL Cholesterol (40-60) mg/dL Ur Specific [place] (1.001-1.035) Urine Protein (Negative) Urine Glucose (UA) (Negative) Urine Ketones (Negative) Urine Blood (Negative) Ur Leukocyte Esterase (Negative) Urine RBC (0-5) /hpf Urine WBC (0-5) /hpf Urine Mucus (None) /hpf 05/17/19 05/17/19 05/17/19 Range/Units 18:33 22:45 22:45 RBC (4.30-5.90) m/uL Hgb (13.0-17.5) gm/dL Hct (39.0-53.0) % MCV (80.0-100.0) fL Plt Count (150-450) k/uL Lymphocytes # (1.0-4.8) k/uL Lymphocytes # (Manual) (1.0-4.8) k/uL Metamyelocytes # (Man) (0) k/uL INR (<1.2) APTT (22.0-30.0) sec ABG pH (7.35-7.45) ABG pCO2 (35-45) mmHg ABG pO2 (83-108) mmHg ABG Total CO2 (19-24) mmol/L ABG O2 Saturation (94-97) % Potassium (3.5-5.1) mmol/L Chloride (98-107) mmol/L BUN (9-20) mg/dL Creatinine (0.66-1.25) mg/dL Glucose (74-99) mg/dL POC Glucose (mg/dL) 133 H (75-99) mg/dL Plasma Lactic Acid David 3.8 H* (0.7-2.0) mmol/L Calcium (8.4-10.2) mg/dL Magnesium (1.6-2.3) mg/dL AST (17-59) U/L ALT (21-72) U/L Ammonia (<30) umol/L Creatine Kinase (55-170) U/L Troponin I 1.110 H* (0.000-0.034) ng/mL Total Protein (6.3-8.2) g/dL Albumin (3.5-5.0) g/dL HDL Cholesterol (40-60) mg/dL Ur Specific [place] (1.001-1.035) Urine Protein (Negative) Urine Glucose (UA) (Negative) Urine Ketones (Negative) Urine Blood (Negative) Ur Leukocyte Esterase (Negative) Urine RBC (0-5) /hpf Urine WBC (0-5) /hpf Urine Mucus (None) /hpf 05/17/19 05/18/19 05/18/19 Range/Units 23:57 03:25 03:25 RBC 3.38 L (4.30-5.90) m/uL Hgb 10.6 L (13.0-17.5) gm/dL Hct 33.9 L (39.0-53.0) % MCV 100.5 H (80.0-100.0) fL Plt Count 114 L (150-450) k/uL Lymphocytes # 0.5 L (1.0-4.8) k/uL Lymphocytes # (Manual) (1.0-4.8) k/uL Metamyelocytes # (Man) (0) k/uL INR (<1.2) APTT (22.0-30.0) sec ABG pH (7.35-7.45) ABG pCO2 (35-45) mmHg ABG pO2 (83-108) mmHg ABG Total CO2 (19-24) mmol/L ABG O2 Saturation (94-97) % Potassium (3.5-5.1) mmol/L Chloride 110 H (98-107) mmol/L BUN 25 H (9-20) mg/dL Creatinine (0.66-1.25) mg/dL Glucose 142 H (74-99) mg/dL POC Glucose (mg/dL) 136 H (75-99) mg/dL Plasma Lactic Acid David (0.7-2.0) mmol/L Calcium 7.2 L (8.4-10.2) mg/dL Magnesium 1.5 L (1.6-2.3) mg/dL AST (17-59) U/L ALT (21-72) U/L Ammonia (<30) umol/L Creatine Kinase (55-170) U/L Troponin I (0.000-0.034) ng/mL Total Protein (6.3-8.2) g/dL Albumin (3.5-5.0) g/dL HDL Cholesterol 31 L (40-60) mg/dL Ur Specific [place] (1.001-1.035) Urine Protein (Negative) Urine Glucose (UA) (Negative) Urine Ketones (Negative) Urine Blood (Negative) Ur Leukocyte Esterase (Negative) Urine RBC (0-5) /hpf Urine WBC (0-5) /hpf Urine Mucus (None) /hpf 05/18/19 05/18/19 05/18/19 Range/Units 03:25 06:42 07:09 RBC (4.30-5.90) m/uL Hgb (13.0-17.5) gm/dL Hct (39.0-53.0) % MCV (80.0-100.0) fL Plt Count (150-450) k/uL Lymphocytes # (1.0-4.8) k/uL Lymphocytes # (Manual) (1.0-4.8) k/uL Metamyelocytes # (Man) (0) k/uL INR 1.2 H (<1.2) APTT 59.5 H (22.0-30.0) sec ABG pH 7.49 H (7.35-7.45) ABG pCO2 31 L (35-45) mmHg ABG pO2 66 L (83-108) mmHg ABG Total CO2 (19-24) mmol/L ABG O2 Saturation (94-97) % Potassium (3.5-5.1) mmol/L Chloride (98-107) mmol/L BUN (9-20) mg/dL Creatinine (0.66-1.25) mg/dL Glucose (74-99) mg/dL POC Glucose (mg/dL) 152 H (75-99) mg/dL Plasma Lactic Acid David (0.7-2.0) mmol/L Calcium (8.4-10.2) mg/dL Magnesium (1.6-2.3) mg/dL AST (17-59) U/L ALT (21-72) U/L Ammonia (<30) umol/L Creatine Kinase (55-170) U/L Troponin I (0.000-0.034) ng/mL Total Protein (6.3-8.2) g/dL Albumin (3.5-5.0) g/dL HDL Cholesterol (40-60) mg/dL Ur Specific [place] (1.001-1.035) Urine Protein (Negative) Urine Glucose (UA) (Negative) Urine Ketones (Negative) Urine Blood (Negative) Ur Leukocyte Esterase (Negative) Urine RBC (0-5) /hpf Urine WBC (0-5) /hpf Urine Mucus (None) /hpf Microbiology - Last 24 Hours (Table) 05/17/19 13:14 Gram Stain - Preliminary Sputum Sputum Culture - Preliminary 05/17/19 16:15 Urine Culture - Preliminary Urine,Voided Assessment and Plan Assessment: Impression: 1 acute hypoxic respiratory failure secondary to cardiac arrest possibly secondary to choking and aspiration. 2 suspect anoxic brain injury considering the down time noted in the chart. 3 Down syndrome 4 history of normal pressure hydrocephalus, may be worse based on CT of the brain done on admission 5 possible aspiration pneumonia 6 and lactic acidosis secondary to cardiac arrest and hypoperfusion, strongly doubt sepsis. 7 history of seizure disorder patient is maintained on Depakote which will be restarted. 8 right sided pneumothorax, most likely iatrogenic, could have been related to the central line placement at [facility], or could be related to CPR. Recommendation: Continue ventilatory support, ventilator settings were adjusted according to the ABG today. His O2 saturation remains marginal on 55% FiO2. But I'm trying to avoid using higher PEEP. Start the nutritional support, patient will be started on enteral feeding. Empiric antibiotics for presumptive aspiration pneumonia, will continue. GI and DVT prophylaxis, will be continued. Hemodynamic support, use norepinephrine as needed maintained mean arterial pressure above 65, presently patient is off norepinephrine since 5:50 PM yesterday. Daily x-rays and daily ABG daily labs Neurological consultation was reviewed, EEG report was also reviewed. Continue DO NOT RESUSCITATE CODE STATUS Continue home seizure meds via nasogastric tube. Patient is back on valproic acid. Continue heparin as per cardiology recommendation. Prognosis remains extremely poor and guarded, we'll continue present supportive care measures, and in the next 24-48 hours, would make decisions whether to continue with aggressive measures or possibly consider terminal weaning. This will be decided upon by his brother who is his legal guardian. And this will depend on the clinical progress of this patient. Critical care time is 36 minutes Time with Patient: Greater than 30
[2019-05-18] MEDS: NOREPINEPHRINE 32 MG in SODIUM CHLORIDE 0.9% 218 ML IV SCH (11:17)
--- NOTE | 2019-05-18 11:33 | P.PN ---
Subjective Progress Note Date: 05/18/19 Principal diagnosis: Right spontaneous pneumothorax, acute hypoxic respiratory failure secondary to cardiac arrest possibly secondary to choking and aspiration, suspected anoxic br ain injury considering down time, past medical history significant for Down syndrome, aspiration pneumonia, history of seizure disorder, hypertension, hyperlipidemia, dementia, history of chronic hyponatremia secondary to SIADH and history of thyroid disorder. This is a 58-year-old gentleman with a history of Down syndrome who lives in a [facility]ci and is followed by visiting physicians on an outpatient basis. The patient lives in a fci and is apparently wheelchair bound. His past [facility] history is significant for episodes of aspiration and choking, dementia, hypertension, hyperlipidemia, seizure disorder and thyroid disorder. The patient is currently intubated and on mechanical ventilator support and his history was obtained from his chart. The patient was apparently eating y day when he became unresponsive at the [facility]ci and CPR was initiated and EMS was called. Patient received CPR and his apparent down time was around 40 minutes, the patient was transferred to [facility], intubated, received 3 doses of epinephrine, and a central line was placed at [facility]. He was subsequently transferred here at [facility] for further evaluation and treatment recommendations. He was initially on norepinephrine drip for blood pressure support as he was hypotensive and has been off since 5 PM yesterday. At this time the patient is hemodynamically stable and is on no inotropic or pressor support. Yesterday evening around 4 PM a chest x-ray was completed which demonstrated a large right-sided pneumothorax of more than 50%. Subsequently due to the pneumothorax Dr. Kaushik Deluca from cardiothoracic surgery was asked to place a Thoravent chest tube. After obtaining consent the right anterior chest Thoravent chest tube was placed by Dr. Kaushik Deluca. This morning the patient remains intubated with mechanical ventilator support and is on propofol drip for sedation. Right anterior chest Thoravent remains in place to low continuous wall suction -20 cm H2O with intermittent air leak present. No drainage is present. Current mechanical ventilator settings are as follows before meals 20, TV 400, FiO2 60% with a PEEP of 5. Oxygen saturations on current mechanical ventilator settings are 94%. ABG results this morning show a pH 7.49, pCO2 31, pO2 66, HCO3 23, oxygen saturation is 94.1% and a base excess of -0.4. Laboratory results show a WBC 8.8, Hgb 10.6, HCT 33.9, platelets of 114, BUN 25 and creatinine 0.76. He remains on heparin drip per protocol. Bedside telemetry showing normal sinus rhythm heart rate 65. His T- max temperature in the last 24 hours is 101.6F. Objective - Vital Signs Vital signs: Vital Signs Temp 98 F 05/18/19 08:00 Pulse 66 05/18/19 08:00 Resp 20 05/18/19 08:00 BP 91/62 05/18/19 08:00 Pulse Ox 94 L 05/18/19 08:00 Intake & Output 05/17/19 05/18/19 05/18/19 18:59 06:59 18:59 Intake Total 2028.986 1753.763 473.643 Output Total 1360 1300 50 Balance 668.986 453.763 423.643 Weight 75.296 kg 77.3 kg 77.3 kg Intake: IV 2000 1625 300 Levofloxacin 750Mg-D5w 150 Pmx 750 mg In Dextrose/ Water 1 150ml.bag @ 100 mls/hr IVPB [facility] Rx#: [id number] Piperacillin-Tazobactam 3 50 25 100 .375 gm In Sodium Chloride 0.9% 100 ml @ 25 mls/hr IVPB Q8HR [facility] Rx# :[id number] Potassium Chloride 10 meq 200 In Water For Injection 1 100ml.bag @ 100 mls/hr IVPB Q1H [facility] Rx#: [id number] Sodium Chloride 0.9% 1, 600 1100 200 000 ml @ 100 mls/hr IV . Q10H [facility] Rx#:[id number] Sodium Chloride 0.9% 1, 1000 000 ml @ 999 mls/hr IV . Q1H1M [facility] Rx#:[id number] Sodium Chloride 0.9% 500 500 ml 500 ml @ 999 mls/hr IV .Q31M [facility] Rx#:[id number] Intake, IV Titration 28.986 128.763 173.643 Amount Heparin Sod,Pork in 0.45% 63.101 NaCl 25,000 unit In 0.45 % NaCl 1 250ml.bag @ 12 UNITS/KG/HR 9.036 mls/hr IV .Q24H [facility] Rx#: [id number] Magnesium Sulfate-D5w Pmx 100 1 gm In Dextrose/Water 1 100ml.bag @ 100 mls/hr IVPB Q1H [facility] Rx#: [id number] Norepinephrine 32 mg In 9.484 Sodium Chloride 0.9% 218 ml @ 0.05 MCG/KG/MIN 1. 765 mls/hr IV .Q24H [facility] Rx#:[id number] Propofol 1,000 mg In 19.502 65.662 73.643 Empty Bag 1 bag @ Titrate IV .Q0M [facility] Rx#: [id number] Output: Urine 1360 1300 50 Other: Voiding Method Indwelling Catheter Indwelling Catheter ABP, PAP, CO, CI - Last Documented Arterial Blood Pressure 134/58 - Constitutional Constitutional Comment(s): Remains sedated on propofol drip. Not following any verbal commands appropriately. General appearance: Present: average body habitus, no acute distress - Respiratory Details: Lung sounds essentially clear throughout, diminished to his right lower lobe. Respirations symmetrical and nonlabored on mechanical ventilator support. Oxygen saturations on current mechanical ventilator settings are 94%. Right anterior chest Thoravent tube in place connected to low intermittent wall suction -20 cm H2O. Intermittent air leak is present. No drainage present. - Cardiovascular Details: Regular rhythm and rate. S1 and S2 present, negative for S3, gallop or murmur. Bedside telemetry showing normal sinus rhythm heart rate 65. No edema present. Knee-high sequential compression devices in place to his bilateral lower extremities. - Gastrointestinal Gastrointestinal Comment(s): Abdomen is soft, and slightly distended. Hypoactive bowel sounds present all 4 abdominal quadrants. No guarding or rigidity. NG tube in place to low intermittent wall suction. - Genitourinary Genitourinary Comment(s): Warren catheter for accurate I&O. Draining clear yellow urine. - Integumentary Integumentary Comment(s): Skin is warm and dry. No clubbing or cyanosis is present. No rash or abnormal pigmentation is present. - Neurologic Neurologic Comment(s): Unable to assess due to sedation of propofol drip. Sedated. - Musculoskeletal Musculoskeletal Comment(s): Unable to assess due to propofol drip. Sedated. Doesn't withdraw from noxious stimuli. - Psychiatric Psychiatric Comment(s): Unable to assess due to propofol drip. Sedated. - Allied health notes Allied health notes reviewed: nursing - Labs CBC & Chem 7: 05/18/19 03:25 05/18/19 03:25 Labs: Abnormal Lab Results - Last 24 Hours (Table) 05/17/19 05/17/19 05/17/19 Range/Units 09:48 10:14 10:14 RBC 4.08 L (4.30-5.90) m/uL Hgb (13.0-17.5) gm/dL Hct (39.0-53.0) % MCV 101.1 H (80.0-100.0) fL Plt Count 134 L (150-450) k/uL Lymphocytes # (1.0-4.8) k/uL Lymphocytes # (Manual) 0.68 L (1.0-4.8) k/uL Metamyelocytes # (Man) 0.08 H (0) k/uL INR (<1.2) APTT (22.0-30.0) sec ABG pH (7.35-7.45) ABG pCO2 (35-45) mmHg ABG pO2 (83-108) mmHg ABG Total CO2 (19-24) mmol/L ABG O2 Saturation (94-97) % Potassium 3.1 L (3.5-5.1) mmol/L Chloride 108 H (98-107) mmol/L BUN 23 H (9-20) mg/dL Creatinine 0.64 L (0.66-1.25) mg/dL Glucose 152 H (74-99) mg/dL POC Glucose (mg/dL) 134 H (75-99) mg/dL Plasma Lactic Acid David (0.7-2.0) mmol/L Calcium 7.9 L (8.4-10.2) mg/dL Magnesium (1.6-2.3) mg/dL AST 150 H (17-59) U/L ALT 142 H (21-72) U/L Ammonia (<30) umol/L Creatine Kinase 284 H (55-170) U/L Troponin I (0.000-0.034) ng/mL Total Protein 6.1 L (6.3-8.2) g/dL Albumin 2.7 L (3.5-5.0) g/dL HDL Cholesterol (40-60) mg/dL Ur Specific Parrish (1.001-1.035) Urine Protein (Negative) Urine Glucose (UA) (Negative) Urine Ketones (Negative) Urine Blood (Negative) Ur Leukocyte Esterase (Negative) Urine RBC (0-5) /hpf Urine WBC (0-5) /hpf Urine Mucus (None) /hpf 05/17/19 05/17/19 05/17/19 Range/Units 10:14 10:14 10:20 RBC (4.30-5.90) m/uL Hgb (13.0-17.5) gm/dL Hct (39.0-53.0) % MCV (80.0-100.0) fL Plt Count (150-450) k/uL Lymphocytes # (1.0-4.8) k/uL Lymphocytes # (Manual) (1.0-4.8) k/uL Metamyelocytes # (Man) (0) k/uL INR (<1.2) APTT (22.0-30.0) sec ABG pH (7.35-7.45) ABG pCO2 (35-45) mmHg ABG pO2 144 H (83-108) mmHg ABG Total CO2 25 H (19-24) mmol/L ABG O2 Saturation 99.2 H (94-97) % Potassium (3.5-5.1) mmol/L Chloride (98-107) mmol/L BUN (9-20) mg/dL Creatinine (0.66-1.25) mg/dL Glucose (74-99) mg/dL POC Glucose (mg/dL) (75-99) mg/dL Plasma Lactic Acid David 4.6 H* (0.7-2.0) mmol/L Calcium (8.4-10.2) mg/dL Magnesium (1.6-2.3) mg/dL AST (17-59) U/L ALT (21-72) U/L Ammonia (<30) umol/L Creatine Kinase (55-170) U/L Troponin I 0.336 H* (0.000-0.034) ng/mL Total Protein (6.3-8.2) g/dL Albumin (3.5-5.0) g/dL HDL Cholesterol (40-60) mg/dL Ur Specific Parrish (1.001-1.035) Urine Protein (Negative) Urine Glucose (UA) (Negative) Urine Ketones (Negative) Urine Blood (Negative) Ur Leukocyte Esterase (Negative) Urine RBC (0-5) /hpf Urine WBC (0-5) /hpf Urine Mucus (None) /hpf 05/17/19 05/17/19 05/17/19 Range/Units 12:59 13:59 15:17 RBC (4.30-5.90) m/uL Hgb (13.0-17.5) gm/dL Hct (39.0-53.0) % MCV (80.0-100.0) fL Plt Count (150-450) k/uL Lymphocytes # (1.0-4.8) k/uL Lymphocytes # (Manual) (1.0-4.8) k/uL Metamyelocytes # (Man) (0) k/uL INR (<1.2) APTT (22.0-30.0) sec ABG pH (7.35-7.45) ABG pCO2 (35-45) mmHg ABG pO2 58 L* (83-108) mmHg ABG Total CO2 26 H (19-24) mmol/L ABG O2 Saturation 90.6 L (94-97) % Potassium (3.5-5.1) mmol/L Chloride (98-107) mmol/L BUN (9-20) mg/dL Creatinine (0.66-1.25) mg/dL Glucose (74-99) mg/dL POC Glucose (mg/dL) 152 H (75-99) mg/dL Plasma Lactic Acid David 3.9 H* (0.7-2.0) mmol/L Calcium (8.4-10.2) mg/dL Magnesium (1.6-2.3) mg/dL AST (17-59) U/L ALT (21-72) U/L Ammonia (<30) umol/L Creatine Kinase (55-170) U/L Troponin I (0.000-0.034) ng/mL Total Protein (6.3-8.2) g/dL Albumin (3.5-5.0) g/dL HDL Cholesterol (40-60) mg/dL Ur Specific Parrish (1.001-1.035) Urine Protein (Negative) Urine Glucose (UA) (Negative) Urine Ketones (Negative) Urine Blood (Negative) Ur Leukocyte Esterase (Negative) Urine RBC (0-5) /hpf Urine WBC (0-5) /hpf Urine Mucus (None) /hpf 05/17/19 05/17/19 05/17/19 Range/Units 16:15 16:20 16:20 RBC (4.30-5.90) m/uL Hgb (13.0-17.5) gm/dL Hct (39.0-53.0) % MCV (80.0-100.0) fL Plt Count (150-450) k/uL Lymphocytes # (1.0-4.8) k/uL Lymphocytes # (Manual) (1.0-4.8) k/uL Metamyelocytes # (Man) (0) k/uL INR (<1.2) APTT (22.0-30.0) sec ABG pH (7.35-7.45) ABG pCO2 (35-45) mmHg ABG pO2 (83-108) mmHg ABG Total CO2 (19-24) mmol/L ABG O2 Saturation (94-97) % Potassium (3.5-5.1) mmol/L Chloride (98-107) mmol/L BUN (9-20) mg/dL Creatinine (0.66-1.25) mg/dL Glucose (74-99) mg/dL POC Glucose (mg/dL) (75-99) mg/dL Plasma Lactic Acid David 2.7 H* (0.7-2.0) mmol/L Calcium (8.4-10.2) mg/dL Magnesium (1.6-2.3) mg/dL AST (17-59) U/L ALT (21-72) U/L Ammonia 59 H (<30) umol/L Creatine Kinase (55-170) U/L Troponin I (0.000-0.034) ng/mL Total Protein (6.3-8.2) g/dL Albumin (3.5-5.0) g/dL HDL Cholesterol (40-60) mg/dL Ur Specific Parrish 1.038 H (1.001-1.035) Urine Protein 1+ H (Negative) Urine Glucose (UA) Trace H (Negative) Urine Ketones 1+ H (Negative) Urine Blood Large H (Negative) Ur Leukocyte Esterase Trace H (Negative) Urine RBC >182 H (0-5) /hpf Urine WBC 38 H (0-5) /hpf Urine Mucus Rare H (None) /hpf 05/17/19 05/17/19 05/17/19 Range/Units 16:32 18:15 18:33 RBC (4.30-5.90) m/uL Hgb (13.0-17.5) gm/dL Hct (39.0-53.0) % MCV (80.0-100.0) fL Plt Count (150-450) k/uL Lymphocytes # (1.0-4.8) k/uL Lymphocytes # (Manual) (1.0-4.8) k/uL Metamyelocytes # (Man) (0) k/uL INR (<1.2) APTT 119.7 H* (22.0-30.0) sec ABG pH (7.35-7.45) ABG pCO2 (35-45) mmHg ABG pO2 (83-108) mmHg ABG Total CO2 (19-24) mmol/L ABG O2 Saturation (94-97) % Potassium (3.5-5.1) mmol/L Chloride (98-107) mmol/L BUN (9-20) mg/dL Creatinine (0.66-1.25) mg/dL Glucose (74-99) mg/dL POC Glucose (mg/dL) 133 H (75-99) mg/dL Plasma Lactic Acid David (0.7-2.0) mmol/L Calcium (8.4-10.2) mg/dL Magnesium (1.6-2.3) mg/dL AST (17-59) U/L ALT (21-72) U/L Ammonia (<30) umol/L Creatine Kinase (55-170) U/L Troponin I 1.700 H* (0.000-0.034) ng/mL Total Protein (6.3-8.2) g/dL Albumin (3.5-5.0) g/dL HDL Cholesterol (40-60) mg/dL Ur Specific Parrish (1.001-1.035) Urine Protein (Negative) Urine Glucose (UA) (Negative) Urine Ketones (Negative) Urine Blood (Negative) Ur Leukocyte Esterase (Negative) Urine RBC (0-5) /hpf Urine WBC (0-5) /hpf Urine Mucus (None) /hpf 05/17/19 05/17/19 05/17/19 Range/Units 22:45 22:45 23:57 RBC (4.30-5.90) m/uL Hgb (13.0-17.5) gm/dL Hct (39.0-53.0) % MCV (80.0-100.0) fL Plt Count (150-450) k/uL Lymphocytes # (1.0-4.8) k/uL Lymphocytes # (Manual) (1.0-4.8) k/uL Metamyelocytes # (Man) (0) k/uL INR (<1.2) APTT (22.0-30.0) sec ABG pH (7.35-7.45) ABG pCO2 (35-45) mmHg ABG pO2 (83-108) mmHg ABG Total CO2 (19-24) mmol/L ABG O2 Saturation (94-97) % Potassium (3.5-5.1) mmol/L Chloride (98-107) mmol/L BUN (9-20) mg/dL Creatinine (0.66-1.25) mg/dL Glucose (74-99) mg/dL POC Glucose (mg/dL) 136 H (75-99) mg/dL Plasma Lactic Acid David 3.8 H* (0.7-2.0) mmol/L Calcium (8.4-10.2) mg/dL Magnesium (1.6-2.3) mg/dL AST (17-59) U/L ALT (21-72) U/L Ammonia (<30) umol/L Creatine Kinase (55-170) U/L Troponin I 1.110 H* (0.000-0.034) ng/mL Total Protein (6.3-8.2) g/dL Albumin (3.5-5.0) g/dL HDL Cholesterol (40-60) mg/dL Ur Specific Parrish (1.001-1.035) Urine Protein (Negative) Urine Glucose (UA) (Negative) Urine Ketones (Negative) Urine Blood (Negative) Ur Leukocyte Esterase (Negative) Urine RBC (0-5) /hpf Urine WBC (0-5) /hpf Urine Mucus (None) /hpf 05/18/19 05/18/19 05/18/19 Range/Units 03:25 03:25 03:25 RBC 3.38 L (4.30-5.90) m/uL Hgb 10.6 L (13.0-17.5) gm/dL Hct 33.9 L (39.0-53.0) % MCV 100.5 H (80.0-100.0) fL Plt Count 114 L (150-450) k/uL Lymphocytes # 0.5 L (1.0-4.8) k/uL Lymphocytes # (Manual) (1.0-4.8) k/uL Metamyelocytes # (Man) (0) k/uL INR 1.2 H (<1.2) APTT 59.5 H (22.0-30.0) sec ABG pH (7.35-7.45) ABG pCO2 (35-45) mmHg ABG pO2 (83-108) mmHg ABG Total CO2 (19-24) mmol/L ABG O2 Saturation (94-97) % Potassium (3.5-5.1) mmol/L Chloride 110 H (98-107) mmol/L BUN 25 H (9-20) mg/dL Creatinine (0.66-1.25) mg/dL Glucose 142 H (74-99) mg/dL POC Glucose (mg/dL) (75-99) mg/dL Plasma Lactic Acid David (0.7-2.0) mmol/L Calcium 7.2 L (8.4-10.2) mg/dL Magnesium 1.5 L (1.6-2.3) mg/dL AST (17-59) U/L ALT (21-72) U/L Ammonia (<30) umol/L Creatine Kinase (55-170) U/L Troponin I (0.000-0.034) ng/mL Total Protein (6.3-8.2) g/dL Albumin (3.5-5.0) g/dL HDL Cholesterol 31 L (40-60) mg/dL Ur Specific Parrish (1.001-1.035) Urine Protein (Negative) Urine Glucose (UA) (Negative) Urine Ketones (Negative) Urine Blood (Negative) Ur Leukocyte Esterase (Negative) Urine RBC (0-5) /hpf Urine WBC (0-5) /hpf Urine Mucus (None) /hpf 05/18/19 05/18/19 Range/Units 06:42 07:09 RBC (4.30-5.90) m/uL Hgb (13.0-17.5) gm/dL Hct (39.0-53.0) % MCV (80.0-100.0) fL Plt Count (150-450) k/uL Lymphocytes # (1.0-4.8) k/uL Lymphocytes # (Manual) (1.0-4.8) k/uL Metamyelocytes # (Man) (0) k/uL INR (<1.2) APTT (22.0-30.0) sec ABG pH 7.49 H (7.35-7.45) ABG pCO2 31 L (35-45) mmHg ABG pO2 66 L (83-108) mmHg ABG Total CO2 (19-24) mmol/L ABG O2 Saturation (94-97) % Potassium (3.5-5.1) mmol/L Chloride (98-107) mmol/L BUN (9-20) mg/dL Creatinine (0.66-1.25) mg/dL Glucose (74-99) mg/dL POC Glucose (mg/dL) 152 H (75-99) mg/dL Plasma Lactic Acid David (0.7-2.0) mmol/L Calcium (8.4-10.2) mg/dL Magnesium (1.6-2.3) mg/dL AST (17-59) U/L ALT (21-72) U/L Ammonia (<30) umol/L Creatine Kinase (55-170) U/L Troponin I (0.000-0.034) ng/mL Total Protein (6.3-8.2) g/dL Albumin (3.5-5.0) g/dL HDL Cholesterol (40-60) mg/dL Ur Specific Parrish (1.001-1.035) Urine Protein (Negative) Urine Glucose (UA) (Negative) Urine Ketones (Negative) Urine Blood (Negative) Ur Leukocyte Esterase (Negative) Urine RBC (0-5) /hpf Urine WBC (0-5) /hpf Urine Mucus (None) /hpf Microbiology - Last 24 Hours (Table) 05/17/19 13:14 Gram Stain - Preliminary Sputum Sputum Culture - Preliminary 05/17/19 16:15 Urine Culture - Preliminary Urine,Voided - Imaging and Cardiology Chest x-ray: report reviewed, image reviewed Assessment and Plan Assessment: 1. Spontaneous right pneumothorax, status post right Thoravent tube placement 2. Acute hypoxic respiratory failure secondary to cardiac arrest 3. Suspected anoxic brain injury considering his down time of 40 minutes 4. Down syndrome 5. Possible aspiration pneumonia, secondary to choking 6. History of seizure disorder Plan: 1. Continue right Thoravent chest tube to low continuous wall suction today, placed to waterseal tomorrow a.m. 2. Pulmonary and ventilator management per Dr. Velez's recommendations. 3. Continue GI and DVT prophylaxis. 4. Medical management and other comorbidities per primary care service and neurology. 5. More recommendations to follow based on patient's clinical course. Time with Patient: Greater than 30
[2019-05-18] MEDS ORDERED: FUROSEMIDE 10 MG/ML 2 ML VIAL IV ONE (11:46)
[2019-05-18 11:53] LABS: Glucose,Whole Blood 152 mg/dL (75-99)
--- NOTE | 2019-05-18 13:08 | P.PN ---
Subjective Progress Note Date: 05/18/19 Patient was seen in the ICU, nurse was present, patient's dad and caregiver from the shelter. Patient is showing no signs of clinical improvement. Patient is intubated, not breathing over the ventilator. Patient sometimes have repetitive chewing movement of his jaw. Sometimes she opens eyes partially inconsistently, not voluntarily. According to the caregiver, patient is nonverbal, make some unintelligible sounds, and is mostly wheelchair bound at his baseline. Objective - Vital Signs Vital signs: Vital Signs Temp 97.6 F 05/18/19 12:00 Pulse 75 05/18/19 12:00 Resp 20 05/18/19 12:00 BP 113/70 05/18/19 12:00 Pulse Ox 94 L 05/18/19 12:00 Intake & Output 05/17/19 05/18/19 05/18/19 18:59 06:59 18:59 Intake Total 2028.986 3241.126 7436.643 Output Total 1360 1300 70 Balance 668.986 700.892 2028.643 Weight 75.296 kg 77.3 kg 77.3 kg Intake: IV 2000 1625 1350 Levofloxacin 750Mg-D5w 150 150 Pmx 750 mg In Dextrose/ Water 1 150ml.bag @ 100 mls/hr IVPB ONCE STA Rx#: [id number] Piperacillin-Tazobactam 3 50 25 100 .375 gm In Sodium Chloride 0.9% 100 ml @ 25 mls/hr IVPB Q8HR [facility] Rx# :[id number] Potassium Chloride 10 meq 200 In Water For Injection 1 100ml.bag @ 100 mls/hr IVPB Q1H [facility] Rx#: [id number] Sodium Chloride 0.9% 1, 600 1100 600 000 ml @ 100 mls/hr IV . Q10H [facility] Rx#:[id number] Sodium Chloride 0.9% 1, 1000 000 ml @ 999 mls/hr IV . Q1H1M ONE Rx#:[id number] Sodium Chloride 0.9% 500 500 500 ml 500 ml @ 999 mls/hr IV .Q31M ONE Rx#:[id number] Intake, IV Titration 28.986 128.763 173.643 Amount Heparin Sod,Pork in 0.45% 63.101 NaCl 25,000 unit In 0.45 % NaCl 1 250ml.bag @ 12 UNITS/KG/HR 9.036 mls/hr IV .Q24H [facility] Rx#: [id number] Magnesium Sulfate-D5w Pmx 100 1 gm In Dextrose/Water 1 100ml.bag @ 100 mls/hr IVPB Q1H [facility] Rx#: [id number] Norepinephrine 32 mg In 9.484 Sodium Chloride 0.9% 218 ml @ 0.05 MCG/KG/MIN 1. 765 mls/hr IV .Q24H [facility] Rx#:[id number] Propofol 1,000 mg In 19.502 65.662 73.643 Empty Bag 1 bag @ Titrate IV .Q0M [facility] Rx#: [id number] Output: Urine 1360 1300 70 Other: Voiding Method Indwelling Catheter Indwelling Catheter ABP, PAP, CO, CI - Last Documented Arterial Blood Pressure 145/64 - Exam Patient is intubated, not on sedation. Patient does not breathe over the ventilator. Patient has no gag. His left pupil is nonreactive. His right pupil was reactive yesterday but not anymore today, may be sluggishly slightly. They are equal. Oculocephalics are absent. Tone is decreased. Patient has bilateral sustained clonus. - Labs CBC & Chem 7: 05/18/19 03:25 05/18/19 03:25 Labs: Abnormal Lab Results - Last 24 Hours (Table) 05/17/19 05/17/19 05/17/19 Range/Units 12:59 13:59 15:17 RBC (4.30-5.90) m/uL Hgb (13.0-17.5) gm/dL Hct (39.0-53.0) % MCV (80.0-100.0) fL Plt Count (150-450) k/uL Lymphocytes # (1.0-4.8) k/uL INR (<1.2) APTT (22.0-30.0) sec ABG pH (7.35-7.45) ABG pCO2 (35-45) mmHg ABG pO2 58 L* (83-108) mmHg ABG Total CO2 26 H (19-24) mmol/L ABG O2 Saturation 90.6 L (94-97) % Chloride (98-107) mmol/L BUN (9-20) mg/dL Glucose (74-99) mg/dL POC Glucose (mg/dL) 152 H (75-99) mg/dL Plasma Lactic Acid David 3.9 H* (0.7-2.0) mmol/L Calcium (8.4-10.2) mg/dL Magnesium (1.6-2.3) mg/dL Ammonia (<30) umol/L Troponin I (0.000-0.034) ng/mL HDL Cholesterol (40-60) mg/dL Ur Specific [place] (1.001-1.035) Urine Protein (Negative) Urine Glucose (UA) (Negative) Urine Ketones (Negative) Urine Blood (Negative) Ur Leukocyte Esterase (Negative) Urine RBC (0-5) /hpf Urine WBC (0-5) /hpf Urine Mucus (None) /hpf 05/17/19 05/17/19 05/17/19 Range/Units 16:15 16:20 16:20 RBC (4.30-5.90) m/uL Hgb (13.0-17.5) gm/dL Hct (39.0-53.0) % MCV (80.0-100.0) fL Plt Count (150-450) k/uL Lymphocytes # (1.0-4.8) k/uL INR (<1.2) APTT (22.0-30.0) sec ABG pH (7.35-7.45) ABG pCO2 (35-45) mmHg ABG pO2 (83-108) mmHg ABG Total CO2 (19-24) mmol/L ABG O2 Saturation (94-97) % Chloride (98-107) mmol/L BUN (9-20) mg/dL Glucose (74-99) mg/dL POC Glucose (mg/dL) (75-99) mg/dL Plasma Lactic Acid David 2.7 H* (0.7-2.0) mmol/L Calcium (8.4-10.2) mg/dL Magnesium (1.6-2.3) mg/dL Ammonia 59 H (<30) umol/L Troponin I (0.000-0.034) ng/mL HDL Cholesterol (40-60) mg/dL Ur Specific [place] 1.038 H (1.001-1.035) Urine Protein 1+ H (Negative) Urine Glucose (UA) Trace H (Negative) Urine Ketones 1+ H (Negative) Urine Blood Large H (Negative) Ur Leukocyte Esterase Trace H (Negative) Urine RBC >182 H (0-5) /hpf Urine WBC 38 H (0-5) /hpf Urine Mucus Rare H (None) /hpf 05/17/19 05/17/19 05/17/19 Range/Units 16:32 18:15 18:33 RBC (4.30-5.90) m/uL Hgb (13.0-17.5) gm/dL Hct (39.0-53.0) % MCV (80.0-100.0) fL Plt Count (150-450) k/uL Lymphocytes # (1.0-4.8) k/uL INR (<1.2) APTT 119.7 H* (22.0-30.0) sec ABG pH (7.35-7.45) ABG pCO2 (35-45) mmHg ABG pO2 (83-108) mmHg ABG Total CO2 (19-24) mmol/L ABG O2 Saturation (94-97) % Chloride (98-107) mmol/L BUN (9-20) mg/dL Glucose (74-99) mg/dL POC Glucose (mg/dL) 133 H (75-99) mg/dL Plasma Lactic Acid David (0.7-2.0) mmol/L Calcium (8.4-10.2) mg/dL Magnesium (1.6-2.3) mg/dL Ammonia (<30) umol/L Troponin I 1.700 H* (0.000-0.034) ng/mL HDL Cholesterol (40-60) mg/dL Ur Specific [place] (1.001-1.035) Urine Protein (Negative) Urine Glucose (UA) (Negative) Urine Ketones (Negative) Urine Blood (Negative) Ur Leukocyte Esterase (Negative) Urine RBC (0-5) /hpf Urine WBC (0-5) /hpf Urine Mucus (None) /hpf 05/17/19 05/17/19 05/17/19 Range/Units 22:45 22:45 23:57 RBC (4.30-5.90) m/uL Hgb (13.0-17.5) gm/dL Hct (39.0-53.0) % MCV (80.0-100.0) fL Plt Count (150-450) k/uL Lymphocytes # (1.0-4.8) k/uL INR (<1.2) APTT (22.0-30.0) sec ABG pH (7.35-7.45) ABG pCO2 (35-45) mmHg ABG pO2 (83-108) mmHg ABG Total CO2 (19-24) mmol/L ABG O2 Saturation (94-97) % Chloride (98-107) mmol/L BUN (9-20) mg/dL Glucose (74-99) mg/dL POC Glucose (mg/dL) 136 H (75-99) mg/dL Plasma Lactic Acid David 3.8 H* (0.7-2.0) mmol/L Calcium (8.4-10.2) mg/dL Magnesium (1.6-2.3) mg/dL Ammonia (<30) umol/L Troponin I 1.110 H* (0.000-0.034) ng/mL HDL Cholesterol (40-60) mg/dL Ur Specific [place] (1.001-1.035) Urine Protein (Negative) Urine Glucose (UA) (Negative) Urine Ketones (Negative) Urine Blood (Negative) Ur Leukocyte Esterase (Negative) Urine RBC (0-5) /hpf Urine WBC (0-5) /hpf Urine Mucus (None) /hpf 05/18/19 05/18/19 05/18/19 Range/Units 03:25 03:25 03:25 RBC 3.38 L (4.30-5.90) m/uL Hgb 10.6 L (13.0-17.5) gm/dL Hct 33.9 L (39.0-53.0) % MCV 100.5 H (80.0-100.0) fL Plt Count 114 L (150-450) k/uL Lymphocytes # 0.5 L (1.0-4.8) k/uL INR 1.2 H (<1.2) APTT 59.5 H (22.0-30.0) sec ABG pH (7.35-7.45) ABG pCO2 (35-45) mmHg ABG pO2 (83-108) mmHg ABG Total CO2 (19-24) mmol/L ABG O2 Saturation (94-97) % Chloride 110 H (98-107) mmol/L BUN 25 H (9-20) mg/dL Glucose 142 H (74-99) mg/dL POC Glucose (mg/dL) (75-99) mg/dL Plasma Lactic Acid David (0.7-2.0) mmol/L Calcium 7.2 L (8.4-10.2) mg/dL Magnesium 1.5 L (1.6-2.3) mg/dL Ammonia (<30) umol/L Troponin I (0.000-0.034) ng/mL HDL Cholesterol 31 L (40-60) mg/dL Ur Specific [place] (1.001-1.035) Urine Protein (Negative) Urine Glucose (UA) (Negative) Urine Ketones (Negative) Urine Blood (Negative) Ur Leukocyte Esterase (Negative) Urine RBC (0-5) /hpf Urine WBC (0-5) /hpf Urine Mucus (None) /hpf 05/18/19 05/18/19 05/18/19 Range/Units 06:42 07:09 11:41 RBC (4.30-5.90) m/uL Hgb (13.0-17.5) gm/dL Hct (39.0-53.0) % MCV (80.0-100.0) fL Plt Count (150-450) k/uL Lymphocytes # (1.0-4.8) k/uL INR (<1.2) APTT (22.0-30.0) sec ABG pH 7.49 H (7.35-7.45) ABG pCO2 31 L (35-45) mmHg ABG pO2 66 L (83-108) mmHg ABG Total CO2 (19-24) mmol/L ABG O2 Saturation (94-97) % Chloride (98-107) mmol/L BUN (9-20) mg/dL Glucose (74-99) mg/dL POC Glucose (mg/dL) 152 H 152 H (75-99) mg/dL Plasma Lactic Acid David (0.7-2.0) mmol/L Calcium (8.4-10.2) mg/dL Magnesium (1.6-2.3) mg/dL Ammonia (<30) umol/L Troponin I (0.000-0.034) ng/mL HDL Cholesterol (40-60) mg/dL Ur Specific [place] (1.001-1.035) Urine Protein (Negative) Urine Glucose (UA) (Negative) Urine Ketones (Negative) Urine Blood (Negative) Ur Leukocyte Esterase (Negative) Urine RBC (0-5) /hpf Urine WBC (0-5) /hpf Urine Mucus (None) /hpf Microbiology - Last 24 Hours (Table) 05/17/19 10:14 Blood Culture - Preliminary Blood No Growth after 24 hours 05/17/19 13:14 Gram Stain - Preliminary Sputum Sputum Culture - Preliminary 05/17/19 16:15 Urine Culture - Preliminary Urine,Voided Assessment and Plan Assessment: * Status post cardiopulmonary arrest with prolonged down time of around 40 minutes. Patient with significant anoxic brain injury. * Down syndrome * History of normal pressure hydrocephalus. * Probable aspiration pneumonia. * History of seizure disorder, maintained on Depakote. Plan: * EEG revealed bursts suppressed pattern, consistent with significant anoxic encephalopathy. * Patient's clinical examination 24 hours post cardiac arrest showing no signs of clinical improvement, in fact slightly worse. * Overall prognosis for meaningful recovery is poor based upon the amount of the downtime, clinical examination and the EEG findings. Repeating EEG will not change the management. * We will follow patient closely. Discussed with patient's father and caregiver in detail.
[2019-05-18 13:45] LABS: Glucose,Whole Blood 108 mg/dL (75-99)
[2019-05-18] MEDS: CLEVIDIPINE BUTYRATE 25 MG in EMPTY BAG 1 BAG IV SCH ×2 (18:01→23:17)
[2019-05-18 19:20] LABS: Glucose,Whole Blood 116 mg/dL (75-99)
--- NOTE | 2019-05-18 21:35 | P.PN ---
Progress Note - Text Progress Note Date: 05/18/19 Chief Complaint: Cardiac arrest Interval history: This is a 58-year-old patient, who follows with visiting physicians, also resident of [facility] assisted living. Patient's brother Bill is legal guardian. Patient's chronic stable medical conditions include Down syndrome, urinary and stool incontinence, hyperlipidemia, hypertension, hypothyroid, SIADH, seizure disorder. Had a baseline patient not able to speak. Make some sounds. Does follow commands. Can't feed himself to the. 2. Patient does have a history of aspiration off-and-on. Patient's primary much wheelchair- bound. Patient was apparently having a meal and with the staff turned around and around his head rolled back. And patient stopped breathing. Cardiac arrest was called. Patient's downtime was about 40 minutes. Patient did receive epinephrine. Initially patient's port to the ER at [facility] and patient received 3 epinephrines and was intubated. 4. Also Robitussin the oropharynx during intubation. Central line was placed. Patient became hypotensive was given levo fed. And also started antibiotics. Patient also given fluid boluses. Patient is also to [facility] here. In the ICU currently on the ventilator. FiO2 60 with PEEP of 5. Drips include epine phrine, IV heparin, levo fed, propofol. Patient did desaturate in the afternoon and was found to have a pneumothorax. Cardiothoracic surgery was consulted and they did put her Thora-vent. Today-. Remains in ICU. On the ventilator. FiO2 40 and PEEP of 5. 2 feeding is running at 20 mL an hour. Levothroid was taken off yesterday evening. Heparin drip was discontinued earlier today. Propofol was stopped early this morning. Patient remains lethargic. With minimal response. Review of systems-cannot be done as patient is intubated Active Medications Albuterol/Ipratropium (Duoneb 0.5 Mg-3 Mg/3 Ml Soln) 3 ml INHALATION RT-Q2H PRN PRN Reason: Shortness Of Breath Or Wheezing Last Admin: 05/17/19 15:27 Dose: 3 ml Documented by: Aspirin (Aspirin) 325 mg PO DAILY [facility] Last Admin: 05/18/19 09:15 Dose: 325 mg Documented by: Chlorhexidine Gluconate (Peridex) 15 ml MUCOUS MEM BID [facility] Last Admin: 05/18/19 21:18 Dose: 15 ml Documented by: Hydromorphone HCl (Dilaudid) 1 mg IVP Q4HR PRN PRN Reason: Pain Last Admin: 05/18/19 14:21 Dose: 1 mg Documented by: Norepinephrine Bitartrate 32 (mg/ Sodium Chloride) 250 mls @ 1.765 mls/hr IV .Q24H [facility]; Protocol Last Admin: 05/18/19 11:17 Dose: Not Given Documented by: Levofloxacin 750 mg/ IV (Solution) 150 mls @ 100 mls/hr IVPB Q24HR [facility] Last Admin: 05/18/19 09:14 Dose: 100 mls/hr Documented by: Piperacillin Sod/Tazobactam (Sod 3.375 gm/ Sodium Chloride) 100 mls @ 25 mls/hr IVPB Q8HR [facility] Stop: 05/27/19 16:01 Last Admin: 05/18/19 15:15 Dose: 25 mls/hr Documented by: Sodium Chloride (Saline 0.9%) 1,000 mls @ 100 mls/hr IV .Q10H [facility] Last Admin: 05/18/19 18:06 Dose: 100 mls/hr Documented by: Propofol 1,000 mg/ IV Solution 100 mls @ 0 mls/hr IV .Q0M [facility]; Protocol Last Titration: 05/18/19 08:45 Dose: 0 mcg/kg/min, 0 mls/hr Documented by: Clevidipine 25 mg/ IV Solution 50 mls @ 2 mls/hr IV .Q24H [facility]; Protocol Last Titration: 05/18/19 18:26 Dose: 4 mg/hr, 8 mls/hr Documented by: Miscellaneous Information (Pneumonia Protocol Utilized) 1 each PO ONCE PRN PRN Reason: Per Protocol Miscellaneous Information (Magnesium Per Protocol) 1 each MISCELLANE DAILY PRN; Protocol PRN Reason: Per Protocol Pantoprazole Sodium (Protonix) 40 mg IVP DAILY [facility] Last Admin: 05/18/19 09:14 Dose: 40 mg Documented by: Valproic Acid (Depakene Syrup) 750 mg PO HS [facility] Last Admin: 05/18/19 21:18 Dose: 750 mg Documented by: Valproic Acid (Depakene Syrup) 1,000 mg PO DAILY [facility] Last Admin: 05/18/19 09:17 Dose: 1,000 mg Documented by: Physical examination: VITAL SIGNS: 97.6, 75, 20, 11 3/70, 94% on the ventilator GENERAL: Laying in bed, intubated EYES: Pupils equal. Conjunctiva normal. HEENT: External appearance of nose and ears normal, oral cavity grossly normal, endotracheal tube in place. NECK: JVD not raised; masses not palpable. HEART: First and second heart sounds are normal; no edema. LUNGS: Respiratory rate normal; decreased breath sounds. ABDOMEN: Soft, nontender, liver spleen not palpable, no masses palpable. PSYCH: Patient intubatedl. NEUROLOGICAL: Minimal response to pain, bilateral foot drop, pupils reactive sluggish, absent corneal reflex, sluggish gag reflex LYMPHATICS: No lymph nodes palpable in the axilla and neck INVESTIGATIONS, reviewed in the clinical context: White count 8.8 hemoglobin 10.6. T4 1 4 potassium 4.2 125 creatinine 0.76 Chest x-ray shows question decreased pneumothorax Previous testing ABGs show pH of 7.42 pO2 of 144 Potassium 3.1. 23 creatinine 0.64 Lactic acid 4.6 AST 150 ALT 142 troponin 0.336 Chest x-ray film personally reviewed by me-shows some infiltrates EKG tracing personally reviewed by me shows some ST depression in V2 to V6 and then. Leads 1 and aVL Computed tomography scan of the brain-chronic encephalomalacia anterior right frontal lobe suggesting sequela of prior vascular traumatic insult new from 2012, progressive moderate hydrocephalus EEG-suggestive of anoxic/metabolic encephalopathy Repeat chest x-ray later showed right-sided pneumothorax Assessment: -Cardiac arrest secondary to the case secondary to choking on food, with downtime about 40 minutes in the field -Acute hypoxic respiratory failure requiring ventilator support, slow to respond -Right-sided pneumothorax now with the Thora-vent -Down syndrome, with severe cognitive impairment -Chronic medical debility patient is wheelchair bound -Hyperlipidemia -Chronic seizure disorder -Hypothyroid -Chronic urinary stool incontinent -Chronic SIADH -Cholerigenic shock requiring levo fed -Aspiration pneumonia and altered consciousness -Acute anoxic brain injury secondary to cardiac arrest -CODE STATUS DO NOT RESUSCITATE Plan: Care plan was discussed with family at the bedside. Prognosis remains guarded. They understand the same. Continue supportive care. Later the nurse told that family is looking at possible terminal extubation tomorrow depending on the course later today.
[2019-05-19] MEDS: IPRATROPIUM-ALBUTEROL 3 ML NEB INHALATION PRN ×3 (00:06→07:45)
[2019-05-19 00:23] LABS: Glucose,Whole Blood 146 mg/dL (75-99)
[2019-05-19 02:06] VITALS: BP 131/75
[2019-05-19] MEDS: ARTIFICIAL TEARS-HYPROMELLOSE DROPS 15 ML BTL BOTH EYES PRN ×2 (02:26→07:56)
[2019-05-19 04:26] LABS: Basophils # (A) 0.1 k/uL (0-0.2); Basophils % (A) 0 %; Eosinophils % (A) 0 %; Lymphocytes # (A) 0.7 k/uL (1.0-4.8); Lymphocytes % (A) 5 %; MCH 32.5 pg (25.0-35.0); MCHC 32.7 g/dL (31.0-37.0); MCV 99.6 fL (80.0-100.0); Macrocytosis Slight; Mean Platelet Volume 7.6; Monocytes # (A) 0.7 k/uL (0-1.0); Monocytes % (A) 5 %; Neutrophils # (A) 12.5 k/uL (1.3-7.7); Neutrophils % (A) 89 %; Platelet Count 135 k/uL (150-450); RBC 2.81 m/uL (4.30-5.90); RDW 14.7 % (11.5-15.5); WBC 14.1 k/uL (3.8-10.6)
[2019-05-19 04:30] LABS: HGB 9.1 gm/dL (13.0-17.5)
[2019-05-19 04:43] LABS: African American GFR (CKD) >90 (>60 ml/min/1.73 sqM); Anion Gap 6 mmol/L; Blood Urea Nitrogen 24 mg/dL (9-20); Calcium 7.5 mg/dL (8.4-10.2); Carbon Dioxide 22 mmol/L (22-30); Chloride 110 mmol/L (98-107); Glucose 162 mg/dL (74-99); Magnesium 2.1 mg/dL (1.6-2.3); Potassium 3.4 mmol/L (3.5-5.1); Sodium 138 mmol/L (137-145)
[2019-05-19] MEDS: HYDROmorphone 1 MG/ML 1 ML SYRINGE IVP PRN (05:10)
[2019-05-19] MEDS: SODIUM CHLORIDE 0.9% 1,000 ML IV SCH (05:17)
[2019-05-19] MEDS ORDERED: Potassium Replacement Protocol 1 EACH MISC MISCELLANE PRN (05:49)
[2019-05-19] MEDS: POTASSIUM BICARBONATE/CIT AC 20 MEQ TABLET.EFF NG-TUBE SCH ×2 (05:57→07:00)
[2019-05-19 07:35] LABS: ABG Base Excess 0.8 mmol/L; ABG HCO3 25 mmol/L (21-25); ABG Oxygen Saturation 92.6 % (94-97); ABG PCO2 35 mmHg (35-45); ABG PH 7.45 (7.35-7.45); ABG PO2 63 mmHg (83-108); ABG TCO2 26 mmol/L (19-24); Allen Test Performed? Yes
[2019-05-19] MEDS: PIPERACILLIN-TAZOBACTAM 3.375 GM in SODIUM CHLORIDE 0.9% 100 ML IVPB SCH (07:54)
[2019-05-19] MEDS: CLEVIDIPINE BUTYRATE 25 MG in EMPTY BAG 1 BAG IV SCH (07:55)
[2019-05-19 08:09] VITALS: RESP 20; TEMP 98.4
[2019-05-19 08:30] LABS: Glucose,Whole Blood 123 mg/dL (75-99)
--- NOTE | 2019-05-19 08:31 | XR ---
EXAMINATION TYPE: XR chest 1V portable DATE OF EXAM: 05/19/2019 COMPARISON: Prior chest x-ray 05/18/2019 HISTORY: Intubated TECHNIQUE: Single frontal view of the chest is obtained. FINDINGS: Endotracheal tube and NG tube are overlying appropriate positions, right-sided thoracic ve nt is in place with distal tip of the catheter coursing towards the mediastinum. There is no sizable pneumothorax. Right jugular central venous catheter is again noted and is overlying appropriate posit ion. Bilateral effusions are suspected, the hemidiaphragms are obscured and the costophrenic angles a re blunted. Patient is rotated. There are overlying cardiac leads. Heart size is stable. Aorta is den se. IMPRESSION: Bibasilar effusions. There is likely associated atelectasis, correlate to exclude pneumo ruddy versus edema, possible cardiomegaly. Heart size may be accentuated by technique.
--- NOTE | 2019-05-19 09:17 | P.PN ---
Subjective Progress Note Date: 05/19/19 Principal diagnosis: Right spontaneous pneumothorax, acute hypoxic respiratory failure secondary to cardiac arrest possibly secondary to choking and aspiration, suspected anoxic br ain injury considering down time. Previous medical history of Down syndrome with severe cognitive impairment and significant debility, aspiration pneumonia, seizure disorder, hypertension, hyperlipidemia, dementia, chronic hyponatremia secondary to SIADH, and hypothyroid. The patient remains intubated in the intensive care unit. Right anterior chest wall thoravent remains in place, continuous wall suction with no air leak present. The patient has been off sedation for 24 hours, does not breathing over the vent unless physically stimulated, does not follow any commands, has no gag reflex. Remains in normal sinus rhythm, hemodynamically stable. No family is present currently, however family was present yesterday and had multiple conversations regarding quality of life and patient's current condition. Objective - Vital Signs Vital signs: Vital Signs Temp 98.4 F 05/19/19 08:00 Pulse 98 05/19/19 08:00 Resp 20 05/19/19 08:00 BP 131/75 05/19/19 00:00 Pulse Ox 96 05/19/19 08:00 Intake & Output 05/18/19 05/19/19 05/19/19 18:59 06:59 18:59 Intake Total 2394.876 1275.7 324.033 Output Total 425 685 35 Balance 1969.876 590.7 289.033 Weight 77.3 kg 82.8 kg Intake: IV 0 1100 200 Levofloxacin 750Mg-D5w 150 Pmx 750 mg In Dextrose/ Water 1 150ml.bag @ 100 mls/hr IVPB ONCE STA Rx#: [id number] Piperacillin-Tazobactam 3 200 100 .375 gm In Sodium Chloride 0.9% 100 ml @ 25 mls/hr IVPB Q8HR [facility] Rx# :[id number] Sodium Chloride 0.9% 1, 1200 1100 100 000 ml @ 100 mls/hr IV . Q10H [facility] Rx#:[id number] Sodium Chloride 0.9% 500 500 ml 500 ml @ 999 mls/hr IV .Q31M ONE Rx#:[id number] Intake, IV Titration 174.876 75.7 14.033 Amount Clevidipine Butyrate 25 1.233 75.7 14.033 mg In Empty Bag 1 bag @ 1 MG/HR 2 mls/hr IV .Q24H [facility] Rx#:[id number] Magnesium Sulfate-D5w Pmx 100 1 gm In Dextrose/Water 1 100ml.bag @ 100 mls/hr IVPB Q1H [facility] Rx#: [id number] Propofol 1,000 mg In 73.643 Empty Bag 1 bag @ Titrate IV .Q0M [facility] Rx#: [id number] Tube Feeding 140 100 80 Other 30 30 Output: Chest Tube Drainage 60 Thora-Vent Right Upper 60 Anterior Chest Urine 425 625 35 Other: Voiding Method Indwelling Catheter Indwelling Catheter ABP, PAP, CO, CI - Last Documented Arterial Blood Pressure 125/58 - Constitutional General appearance: Present: no acute distress - Respiratory Details: Lungs sounds clear bilaterally, slightly diminished on the right side. Respirations even, nonlabored on mechanical ventilation. Current ventilator settings FiO2 40%, tidal volume 400, respiratory rate 20, PEEP 5. Oxygen saturation in the mid 90s. Right anterior chest wall thoravent present, connected to continuous wall suction through the atrium, 60 mL serosanguineous drainage in the last 24 hours, no air leak present. - Cardiovascular Details: S1, S2 present. Regular rate and rhythm, sinus rhythm on telemetry. Palpable peripheral pulses bilaterally. Trace generalized edema present. SCDs present. Right internal jugular central line, right radial arterial line present. - Gastrointestinal Gastrointestinal Comment(s): Abdomen soft, nontender, nondistended. Hypoactive bowel sounds present 4 quadrants. OG tube present with tube feeding infusing at 40 mL per hour. - Genitourinary Genitourinary Comment(s): Warren present draining clear, yellow urine. Output 40-60 mL/h overnight. - Integumentary Integumentary Comment(s): Skin is warm and dry. - Neurologic Neurologic Comment(s): Unresponsive on the ventilator - Allied health notes Allied health notes reviewed: nursing - Labs CBC & Chem 7: 05/19/19 04:20 05/19/19 04:20 Labs: Abnormal Lab Results - Last 24 Hours (Table) 05/18/19 05/18/19 05/18/19 Range/Units 11:41 13:34 19:09 WBC (3.8-10.6) k/uL RBC (4.30-5.90) m/uL Hgb (13.0-17.5) gm/dL Hct (39.0-53.0) % Plt Count (150-450) k/uL Neutrophils # (1.3-7.7) k/uL Lymphocytes # (1.0-4.8) k/uL ABG pO2 (83-108) mmHg ABG Total CO2 (19-24) mmol/L ABG O2 Saturation (94-97) % Potassium (3.5-5.1) mmol/L Chloride (98-107) mmol/L BUN (9-20) mg/dL Creatinine (0.66-1.25) mg/dL Glucose (74-99) mg/dL POC Glucose (mg/dL) 152 H 108 H 116 H (75-99) mg/dL Calcium (8.4-10.2) mg/dL 05/19/19 05/19/19 05/19/19 Range/Units 00:11 04:20 04:20 WBC 14.1 H (3.8-10.6) k/uL RBC 2.81 L (4.30-5.90) m/uL Hgb 9.1 L D (13.0-17.5) gm/dL Hct 28.0 L (39.0-53.0) % Plt Count 135 L (150-450) k/uL Neutrophils # 12.5 H (1.3-7.7) k/uL Lymphocytes # 0.7 L (1.0-4.8) k/uL ABG pO2 (83-108) mmHg ABG Total CO2 (19-24) mmol/L ABG O2 Saturation (94-97) % Potassium 3.4 L (3.5-5.1) mmol/L Chloride 110 H (98-107) mmol/L BUN 24 H (9-20) mg/dL Creatinine 0.65 L (0.66-1.25) mg/dL Glucose 162 H (74-99) mg/dL POC Glucose (mg/dL) 146 H (75-99) mg/dL Calcium 7.5 L (8.4-10.2) mg/dL 05/19/19 05/19/19 Range/Units 07:33 08:19 WBC (3.8-10.6) k/uL RBC (4.30-5.90) m/uL Hgb (13.0-17.5) gm/dL Hct (39.0-53.0) % Plt Count (150-450) k/uL Neutrophils # (1.3-7.7) k/uL Lymphocytes # (1.0-4.8) k/uL ABG pO2 63 L (83-108) mmHg ABG Total CO2 26 H (19-24) mmol/L ABG O2 Saturation 92.6 L (94-97) % Potassium (3.5-5.1) mmol/L Chloride (98-107) mmol/L BUN (9-20) mg/dL Creatinine (0.66-1.25) mg/dL Glucose (74-99) mg/dL POC Glucose (mg/dL) 123 H (75-99) mg/dL Calcium (8.4-10.2) mg/dL Microbiology - Last 24 Hours (Table) 05/17/19 16:15 Urine Culture - Final Urine,Voided 05/17/19 10:14 Blood Culture - Preliminary Blood No Growth after 24 hours 05/17/19 13:14 Gram Stain - Preliminary Sputum Sputum Culture - Preliminary - Imaging and Cardiology Chest x-ray: report reviewed, image reviewed Assessment and Plan Assessment: 1. Spontaneous right-sided pneumothorax, status post right Thoravent tube placement 2. Acute hypoxic respiratory failure secondary to cardiac arrest 3. Suspected anoxic brain injury with down time of 40 minutes 4. Aspiration pneumonia, secondary to choking 5. Down syndrome with severe cognitive impairment and significant debility 6. Seizure disorder 7. Hypertension 8. Hyponatremia 9. SIADH 10. Hypothyroidism Plan: 1. Thoravent placed to waterseal. Will discontinue after extubation. 2. Pulmonary and ventilator management per Dr. Velez's recommendations. 3. Continue GI and DVT prophylaxis. 4. Medical management and other comorbidities per primary care service and neurology. 5. The patient may be made comfort care today, agree with that plan. 6. More recommendations to follow based on patient's clinical course. Time with Patient: Greater than 30
[2019-05-19] MEDS ORDERED: MORPHINE SULFATE 4 MG/ML SYRINGE IV PRN (09:56)
[2019-05-19] MEDS ORDERED: MORPHINE SULFATE 2 MG/ML SYRINGE IV PRN (09:56)
[2019-05-19] MEDS ORDERED: LORazepam 2 MG/ML INJ IV PRN (09:56)
[2019-05-19] MEDS ORDERED: ATROPINE OPHTH SOLN 1% 5ML BTL SUBLINGUAL PRN (09:56)
[2019-05-19] MEDS ORDERED: MORPHINE SULFATE (100 MG/2 ML) 100 MG in SODIUM CHLORIDE 0.9% 100 ML IV SCH (10:00)
[2019-05-19] MEDS ORDERED: SCOPOLAMINE 1.5MG/72HR PATCH TRANSDERM SCH (10:00)
[2019-05-19] MEDS: LEVOFLOXACIN 750MG-D5W PMX 750 MG in DEXTROSE/WATER 1 150ML.BAG IVPB SCH (10:24)
[2019-05-19] MEDS: ASPIRIN 325 MG TAB PO SCH (10:24)
[2019-05-19] MEDS: PANTOPRAZOLE 40 MG/10 ML VIAL IVP SCH (10:24)
[2019-05-19] MEDS: CHLORHEXIDINE GLUCONATE 15 ML CUP MUCOUS MEM SCH (10:24)
[2019-05-19] MEDS: VALPROIC ACID ORAL SOLN 250 MG/5 ML CUP PO SCH (10:25)
[2019-05-19] MEDS: NOREPINEPHRINE 32 MG in SODIUM CHLORIDE 0.9% 218 ML IV SCH (10:31)
--- NOTE | 2019-05-19 11:05 | P.PN ---
Subjective Progress Note Date: 05/19/19 Principal diagnosis: Acute hypoxic respiratory failure, cardiac arrest. This is a 58-year-old white male with history of Down syndrome, patient lives in a longterm, and he is wheelchair ridden. Patient was eating and he had a sudden episode of choking, became unresponsive, and CPR was started by longterm staff. EMS was called, and CPR continued. Patient was brought into the emergency room at [facility], CPR was continued, patient received 3 epinephrine is, he was intubated, and food products were witnessed in the oropharynx during intubation. Patient had a central line placed by ER physician at [facility], he was hypotensive requiring levo fed, and he was started on antibiotics empirically. Patient received a total of 2 L of fluid boluses during CPR, and total down time was over 40 minutes. Patient was brought into our ER as a transfer, CT of the brain was performed, and it showed chronic encephalomalacia anterior right frontal lobe suggesting sequela of prior vascular or traumatic insult, new from 2013. It also showed progressive moderate hydrocephalus compared to CT in 2013. Correlate for possible NPH. There was no evidence of intracranial hemorrhage or midline shift. Chest x-ray showed bibasilar opacities, and increased interstitial markings. Right IJ central line was noted in place, and endotracheal tube was noted to be in proper position. Upon evaluating the patient in the ICU, he is now on assist control mode of mechanical ventilation, tidal volume is 400 rate is 20 FiO2 is 50% and PEEP is 5. ABG on these vent settings is pending. Patient was placed empirically on antibiotics in the form of Zosyn and Levaquin, lactic acid was noted to be elevated, hence he received fluid boluses almost 3 L were given so far. Lactic acid is pending all his labs were reviewed CBC was relatively normal. ABG on 100% earlier showed a pO2 of 144 pCO2 of 37 pH of 7.42. Basic metabolic profile was normal except for low potassium of 3.1 and BUN and creatinine normal. Lactic acid on presentation was 4.6. Troponin noted to be elevated at 0.336. Valproic acid level is therapeutic Patient was reevaluated today on 05/18/2019, remains in the ICU, on mechanical ventilation. Patient developed a right sided pneumothorax on the right side yesterday, and this was noted on a chest x-ray done to evaluate orogastric tube placement. His pneumothorax was not seen on his earlier chest x-ray when he came into the ER. And most likely the pneumothorax was related to his right internal jugular central line placement or could be related to CPR. It is at this point unknown. Could be either or. Patient had a large right-sided pneumothorax, and Dr. Deluca happened to be in the ICU at that time, he was consulted and he placed a thoravent in the right upper anterior chest. Significant improvement noted immediately. And almost near complete expansion of the right lung. Patient is presently on the following vent settings. Assist control rate of 20 tidal volume of 400 FiO2 is 55% PEEP is 5. He is off norepinephrine, maintained on propofol at 20 mcg/kg/m. Seems to be calm, sedated, and even on a lower dose of propofol, the patient does not seem to respond. He was seen by neurology on consultation, and it is felt that the patient may have sustained anoxic brain injury. EEG report was noted. Labs today were all reviewed including his ABG chest x-ray. And his ABG showed PO2 of 66 pCO2 of 31 pH of 7.49 and this was on 60% hence FiO2 was cut down to 55%. Patient received multiple fluid boluses yesterday, and his urine output was poor, then he was given 1 dose of Lasix, and he had a significant response, diuresed almost 2 L. Lactic acid is a bit elevated today, hence the patient will receive fluid boluses again. And we'll continue to monitor his renal output closely. CBC showed WBC count of 8.8 hemoglobin 10.6 PTT is 59.5. Basic metabolic profile is normal renal profile is normal. Chest x-ray showed small tiny right apical pneumothorax. And the chest tube is in the right place. Reevaluated today on 05/15/2019, patient remains in the ICU, mechanically ventilated. His ventilator settings are basically the same he is on assist control rate of 20 tidal volume of 400 FiO2 40% and PEEP of 5. He is not on any narcotics, he is not on any drips except clevidipine for his elevated blood p ressure. And his blood pressure seems to be fairly well controlled with the drip. Patient is unresponsive, does not respond to any painful or verbal stimuli. He has no reflexes, no gag reflex, no corneal reflex, and he has negative calorics. Seen yesterday by neurology, and felt that the patient has severe anoxic brain injury, and family was updated on his condition yesterday and today. ABG this morning showed a pO2 of 63 pCO2 of 35 pH of 7.45. CBC is relatively unremarkable hemoglobin is 9.1 elective was relatively normal. Renal profile is normal. Chest x-ray showed small effusions, and minimal atelectasis, otherwise unremarkable. Objective - Vital Signs Vital signs: Vital Signs Temp 98.4 F 05/19/19 08:00 Pulse 96 05/19/19 10:00 Resp 20 05/19/19 10:00 BP 131/75 05/19/19 00:00 Pulse Ox 96 05/19/19 10:00 Intake & Output 05/18/19 05/19/19 05/19/19 18:59 06:59 18:59 Intake Total 2394.876 1275.7 644.033 Output Total 425 685 105 Balance 1969.876 590.7 539.033 Weight 77.3 kg 82.8 kg Intake: IV 2050 1100 400 Levofloxacin 750Mg-D5w 150 Pmx 750 mg In Dextrose/ Water 1 150ml.bag @ 100 mls/hr IVPB ONCE STA Rx#: [id number] Piperacillin-Tazobactam 3 200 100 .375 gm In Sodium Chloride 0.9% 100 ml @ 25 mls/hr IVPB Q8HR ATUL Rx# :[id number] Sodium Chloride 0.9% 1, 1200 1100 300 000 ml @ 100 mls/hr IV . Q10H ATUL Rx#:[id number] Sodium Chloride 0.9% 500 500 ml 500 ml @ 999 mls/hr IV .Q31M ONE Rx#:[id number] Intake, IV Titration 174.876 75.7 14.033 Amount Clevidipine Butyrate 25 1.233 75.7 14.033 mg In Empty Bag 1 bag @ 1 MG/HR 2 mls/hr IV .Q24H ATUL Rx#:[id number] Magnesium Sulfate-D5w Pmx 100 1 gm In Dextrose/Water 1 100ml.bag @ 100 mls/hr IVPB Q1H ATUL Rx#: [id number] Propofol 1,000 mg In 73.643 Empty Bag 1 bag @ Titrate IV .Q0M ATUL Rx#: [id number] Tube Feeding 140 100 200 Other 30 30 Output: Chest Tube Drainage 60 Thora-Vent Right Upper 60 Anterior Chest Urine 425 625 105 Other: Voiding Method Indwelling Catheter Indwelling Catheter Indwelling Catheter ABP, PAP, CO, CI - Last Documented Arterial Blood Pressure 130/57 - Exam Physical Exam physical exam revealed a 58-year-old white male, with down syndrome features, on mechanical ventilation, off sedation, unresponsive. Has been off sedation since yesterday. HEENT: Short neck, Neck is supple.] [No neck masses.] [No thyromegaly.] [No JVD.] Moist mucous membranes, endotracheal tube is intact, and orogastric tube is intact. Pupils are extremely sluggish to respond to light. Chest: [Minimal fine crackles at the bases, no rhonchi and no wheezes.] Cardiac Exam: [Normal S1 and S2, no S3 gallop, 2/6 systolic murmur throughout the precordium.] Abdomen: [Soft, nontender, no megaly, no rebound, no guarding, normal bowel sounds.] Extremities: [No clubbing, no edema, no cyanosis.] Evidence of upper and lower extremities atrophy, poor muscle tone. Good pulses bilaterally. Neurological Exam: Patient is unresponsive to any stimuli. He has negative reflexes, negative gag reflex, negative corneal reflex, negative doll's eyes. Skin: No rashes. Psychiatric: Could not be assessed. Lymphatics: No lymphadenopathy. - Labs CBC & Chem 7: 05/19/19 04:20 05/19/19 04:20 Labs: Abnormal Lab Results - Last 24 Hours (Table) 05/18/19 05/18/19 05/18/19 Range/Units 11:41 13:34 19:09 WBC (3.8-10.6) k/uL RBC (4.30-5.90) m/uL Hgb (13.0-17.5) gm/dL Hct (39.0-53.0) % Plt Count (150-450) k/uL Neutrophils # (1.3-7.7) k/uL Lymphocytes # (1.0-4.8) k/uL ABG pO2 (83-108) mmHg ABG Total CO2 (19-24) mmol/L ABG O2 Saturation (94-97) % Potassium (3.5-5.1) mmol/L Chloride (98-107) mmol/L BUN (9-20) mg/dL Creatinine (0.66-1.25) mg/dL Glucose (74-99) mg/dL POC Glucose (mg/dL) 152 H 108 H 116 H (75-99) mg/dL Calcium (8.4-10.2) mg/dL 05/19/19 05/19/19 05/19/19 Range/Units 00:11 04:20 04:20 WBC 14.1 H (3.8-10.6) k/uL RBC 2.81 L (4.30-5.90) m/uL Hgb 9.1 L D (13.0-17.5) gm/dL Hct 28.0 L (39.0-53.0) % Plt Count 135 L (150-450) k/uL Neutrophils # 12.5 H (1.3-7.7) k/uL Lymphocytes # 0.7 L (1.0-4.8) k/uL ABG pO2 (83-108) mmHg ABG Total CO2 (19-24) mmol/L ABG O2 Saturation (94-97) % Potassium 3.4 L (3.5-5.1) mmol/L Chloride 110 H (98-107) mmol/L BUN 24 H (9-20) mg/dL Creatinine 0.65 L (0.66-1.25) mg/dL Glucose 162 H (74-99) mg/dL POC Glucose (mg/dL) 146 H (75-99) mg/dL Calcium 7.5 L (8.4-10.2) mg/dL 05/19/19 05/19/19 Range/Units 07:33 08:19 WBC (3.8-10.6) k/uL RBC (4.30-5.90) m/uL Hgb (13.0-17.5) gm/dL Hct (39.0-53.0) % Plt Count (150-450) k/uL Neutrophils # (1.3-7.7) k/uL Lymphocytes # (1.0-4.8) k/uL ABG pO2 63 L (83-108) mmHg ABG Total CO2 26 H (19-24) mmol/L ABG O2 Saturation 92.6 L (94-97) % Potassium (3.5-5.1) mmol/L Chloride (98-107) mmol/L BUN (9-20) mg/dL Creatinine (0.66-1.25) mg/dL Glucose (74-99) mg/dL POC Glucose (mg/dL) 123 H (75-99) mg/dL Calcium (8.4-10.2) mg/dL Microbiology - Last 24 Hours (Table) 05/17/19 16:15 Urine Culture - Final Urine,Voided 05/17/19 10:14 Blood Culture - Preliminary Blood No Growth after 24 hours 05/17/19 13:14 Gram Stain - Preliminary Sputum Sputum Culture - Preliminary Assessment and Plan Assessment: Impression: 1 acute hypoxic respiratory failure secondary to cardiac arrest possibly secondary to choking and aspiration. 2 severe anoxic brain injury 3 Down syndrome 4 history of normal pressure hydrocephalus, may be worse based on CT of the brain done on admission 5 possible aspiration pneumonia 6 and lactic acidosis secondary to cardiac arrest and hypoperfusion, resolved 7 history of seizure disorder patient is maintained on Depakote which will be restarted. 8 right sided pneumothorax, most likely iatrogenic, could have been related to the central line placement at [facility], or could be related to CPR. Recommendation: Had a long discussion this morning with his family including his brother/legal guardian, updated on his overall neurological status, and discussed different options. Brother clearly stated that he would rather choose comfort care measures and let him go in peace comfort and dignity. Hence we'll proceed with comfort care measures. Instructed the nurses to do so. Critical care time is 34 minutes Time with Patient: Greater than 30
[2019-05-19 11:22] VITALS: PULSE 93
--- NOTE | 2019-05-24 15:56 | P.DS ---
Providers Date of admission: 05/17/19 10:49 Expected date of discharge: 05/19/19 Attending physician: Kaden Brennan Consults: 05/17/19 10:48 Consult Physician Urgent Consulting Provider: Gabby Velez Consult Reason/Comments: critical care Do you want consulting provider notified?: Already Contacted Consult Physician Urgent Consulting Provider: Anant Lima Consult Reason/Comments: Unresponsive Do you want consulting provider notified?: Yes 05/17/19 10:50 Consult Physician Urgent Consulting Provider: Rudolph Villarreal Consult Reason/Comments: Postcardiac arrest Do you want consulting provider notified?: Yes 05/17/19 17:53 Consult Physician Stat Consulting Provider: Kaushik Deluca Consult Reason/Comments: pneumothorax Do you want consulting provider notified?: Already Contacted 05/18/19 08:16 Consult Physician Routine Consulting Provider: Kaushik Deluca Consult Reason/Comments: right pneumothorax Do you want consulting provider notified?: Yes Primary care physician: [facility] Course: Chief Complaint: Cardiac arrest Interval history: This is a 58-year-old patient, who follows with visiting physicians, also resident of [facility] living. Patient's brother Bill is legal guardian. Patient's chronic stable medical conditions include Down syndrome, urinary and stool incontinence, hyperlipidemia, hypertension, hypothyroid, SIADH, seizure disorder. Had a baseline patient not able to speak. Make some sounds. Does follow commands. Can't feed himself to the. 2. Patient does have a history of aspiration off-and-on. Patient's primary much wheelchair- bound. Patient was apparently having a meal and with the staff turned around and around his head rolled back. And patient stopped breathing. Cardiac arrest was called. Patient's downtime was about 40 minutes. Patient did receive epinephrine. [facility] patient received 3 epinephrines and was intubated. 4. Also Robitussin the oropharynx during intubation. Central line was placed. Patient became hypotensive was given levo fed. And also started antibiotics. Patient also given fluid boluses. Patient is also to [facility] here. In the ICU currently on the ventilator. FiO2 60 with PEEP of 5. Drips include epinephrine, IV heparin, levo fed, propofol. Patient did desaturate in the afternoon and was found to have a pneumothorax. Cardiothoracic surgery was consulted and they did put her Thora-vent. Today-. Patient will be terminally extubated today. For comfort measures Review of systems-cannot be done as patient is intubated Current medications are reviewed from today's electronic records Physical examination: VITAL SIGNS: Vital signs blood or from today's electronic records. GENERAL: Laying in bed, intubated EYES: Pupils equal. Conjunctiva normal. HEENT: External appearance of nose and ears normal, oral cavity grossly normal, endotracheal tube in place. NECK: JVD not raised; masses not palpable. HEART: First and second heart sounds are normal; no edema. LUNGS: Respiratory rate normal; decreased breath sounds. ABDOMEN: Soft, nontender, liver spleen not palpable, no masses palpable. PSYCH: Patient intubatedl. NEUROLOGICAL: Minimal response to pain, bilateral foot drop, pupils reactive sluggish, absent corneal reflex, sluggish gag reflex INVESTIGATIONS, reviewed in the clinical context: White count 8.8 hemoglobin 10.6. T4 1 4 potassium 4.2 125 creatinine 0.76 Chest x-ray shows question decreased pneumothorax Previous testing ABGs show pH of 7.42 pO2 of 144 Potassium 3.1. 23 creatinine 0.64 Lactic acid 4.6 AST 150 ALT 142 troponin 0.336 Chest x-ray film personally reviewed by me-shows some infiltrates EKG tracing personally reviewed by me shows some ST depression in V2 to V6 and then. Leads 1 and aVL Computed tomography scan of the brain-chronic encephalomalacia anterior right frontal lobe suggesting sequela of prior vascular traumatic insult new from 2012, progressive moderate hydrocephalus EEG-suggestive of anoxic/metabolic encephalopathy Repeat chest x-ray later showed right-sided pneumothorax Discharge diagnosis: -Cardiac arrest secondary to the case secondary to choking on food, with downtime about 40 minutes in the field -Acute hypoxic respiratory failure requiring ventilator support, slow to respond -Right-sided pneumothorax now with the Thora-vent -Down syndrome, with severe cognitive impairment -Chronic medical debility patient is wheelchair bound -Hyperlipidemia -Chronic seizure disorder -Hypothyroid -Chronic urinary stool incontinent -Chronic SIADH -Cholerigenic shock requiring levo fed -Aspiration pneumonia and altered consciousness -Acute anoxic brain injury secondary to cardiac arrest -CODE STATUS DO NOT RESUSCITATE Plan: Patient will be terminally extubated. Comfort measures will be initiated. Hospice on the case.. Patient Condition at Discharge: Poor Plan - Discharge Summary Discharge Rx Participant: No New Discharge Prescriptions: No Action traZODone HCL [traZODone] 300 mg PO HS Primidone [Mysoline] 25 mg PO HS Imipramine HCl [Tofranil] 25 mg PO HS Multivitamins, Thera [Multivitamin (formulary)] 1 tab PO DAILY Lacosamide [Vimpat] 100 mg PO BID Sucralfate [Carafate] 1 gm PO BID-W/MEALS Simvastatin [Zocor] 20 mg PO HS Omeprazole [PriLOSEC] 20 mg PO DAILY Melatonin 5 mg PO HS Levothyroxine Sodium [Synthroid] 137 mcg PO DAILY Sennosides/Docusate Sodium [Senna Plus 8.6-50 mg Tablet] 2 tab PO HS Divalproex [Depakote] 250 mg PO HS Divalproex [Depakote] 500 mg PO HS Clindamycin Topical Soln [Cleocin-T Topical Soln] 1 applic TOPICAL BID Beneprotein Powder 1 scoop PO BID Aspirin [Norris Aspirin EC] 81 mg PO DAILY Triamcinolone Acetonide [Triamcinolone Acetonide 0.025%] 1 applic TOPICAL HS Divalproex [Depakote] 1,000 mg PO DAILY Acetaminophen Tab [Tylenol Tab] 500 mg PO Q6H Nystatin 1 applic TOPICAL BID PRN PRN Reason: IRRITATION Magnesium Hydroxide [Milk of Magnesia] 2,400 mg PO DAILY PRN PRN Reason: Constipation LORazepam [Ativan] 1 mg PO DAILY PRN PRN Reason: Seizures Loperamide [Imodium] 2 mg PO QID PRN PRN Reason: Diarrhea Ibuprofen 200 mg PO Q6H PRN PRN Reason: Pain Or Fever > 100.5 Ketoconazole [Ketoconazole 2%] 1 applic TOPICAL DAILY Carbamide Peroxide [Debrox Otic] 5 drops BOTH EARS BID PRN PRN Reason: WAX Discharge Medication List Imipramine HCl [Tofranil] 25 mg PO HS 02/23/14 [History] Multivitamins, Thera [Multivitamin (formulary)] 1 tab PO DAILY 02/23/14 [History] Primidone [Mysoline] 25 mg PO HS 02/23/14 [History] traZODone HCL [traZODone] 300 mg PO HS 02/23/14 [History] Acetaminophen Tab [Tylenol Tab] 500 mg PO Q6H 05/17/19 [History] Aspirin [Norris Aspirin EC] 81 mg PO DAILY 05/17/19 [History] Beneprotein Powder 1 scoop PO BID 05/17/19 [History] Carbamide Peroxide [Debrox Otic] 5 drops BOTH EARS BID PRN 05/17/19 [History] Clindamycin Topical Soln [Cleocin-T Topical Soln] 1 applic TOPICAL BID 05/17/19 [History] Divalproex [Depakote] 1,000 mg PO DAILY 05/17/19 [History] Divalproex [Depakote] 250 mg PO HS 05/17/19 [History] Divalproex [Depakote] 500 mg PO HS 05/17/19 [History] Ibuprofen 200 mg PO Q6H PRN 05/17/19 [History] Ketoconazole [Ketoconazole 2%] 1 applic TOPICAL DAILY 05/17/19 [History] LORazepam [Ativan] 1 mg PO DAILY PRN 05/17/19 [History] Lacosamide [Vimpat] 100 mg PO BID 05/17/19 [History] Levothyroxine Sodium [Synthroid] 137 mcg PO DAILY 05/17/19 [History] Loperamide [Imodium] 2 mg PO QID PRN 05/17/19 [History] Magnesium Hydroxide [Milk of Magnesia] 2,400 mg PO DAILY PRN 05/17/19 [History] Melatonin 5 mg PO HS 05/17/19 [History] Nystatin 1 applic TOPICAL BID PRN 05/17/19 [History] Omeprazole [PriLOSEC] 20 mg PO DAILY 05/17/19 [History] Sennosides/Docusate Sodium [Senna Plus 8.6-50 mg Tablet] 2 tab PO HS 05/17/19 [History] Simvastatin [Zocor] 20 mg PO HS 05/17/19 [History] Sucralfate [Carafate] 1 gm PO BID-W/MEALS 05/17/19 [History] Triamcinolone Acetonide [Triamcinolone Acetonide 0.025%] 1 applic TOPICAL HS 05/17/19 [History] Follow up Appointment(s)/Referral(s): Duran Arrieta MD [Primary Care Provider] - 1-2 days Discharge Disposition: [facility] TO [facility]
== END 2019-05-19 11:30 | disposition hospice, inpatient (51) | DRG 208 ==
LOC: EC 09:39 → EEVIPCON 10:49 → 2SICU 10:49
PROVIDERS: ADMIT Hospitalist; ATTEND Hospitalist
PROC: 5A1945Z Respiratory Ventilation, 24-96 Consecutive Hours (ICD-10-PCS; principal; 2019-05-17)
PROC: 03HY32Z Insertion of Monitoring Device into Upper Artery, Percutaneous Approach (ICD-10-PCS; 2019-05-17)
PROC: 4A133B1 Monitoring of Arterial Pressure, Peripheral, Percutaneous Approach (ICD-10-PCS; 2019-05-17)
PROC: 4A133J1 Monitoring of Arterial Pulse, Peripheral, Percutaneous Approach (ICD-10-PCS; 2019-05-17)
PROC: 0W9930Z Drainage of Right Pleural Cavity with Drainage Device, Percutaneous Approach (ICD-10-PCS; 2019-05-17)
DX: J96.01 Acute respiratory failure with hypoxia (principal); J69.0 Pneumonitis due to inhalation of food and vomit; I46.9 Cardiac arrest, cause unspecified; R40.2312 Coma scale, best motor response, none, at arrival to emergency department; R40.2212 Coma scale, best verbal response, none, at arrival to emergency department; J95.811 Postprocedural pneumothorax; E22.2 Syndrome of inappropriate secretion of antidiuretic hormone; E87.2 Acidosis; G91.2 (Idiopathic) normal pressure hydrocephalus; G93.1 Anoxic brain damage, not elsewhere classified; E03.9 Hypothyroidism, unspecified; E78.5 Hyperlipidemia, unspecified; F03.90 Unspecified dementia, unspecified severity, without behavioral disturbance, psychotic disturbance, mood disturbance, and anxiety; G40.909 Epilepsy, unspecified, not intractable, without status epilepticus; G93.89 Other specified disorders of brain; I10 Essential (primary) hypertension; Q90.9 Down syndrome, unspecified; Z66 Do not resuscitate; Z51.5 Encounter for palliative care; Z79.82 Long term (current) use of aspirin; Z79.890 Hormone replacement therapy; Z79.899 Other long term (current) drug therapy; Z82.49 Family history of ischemic heart disease and other diseases of the circulatory system; Z86.73 Personal history of transient ischemic attack (TIA), and cerebral infarction without residual deficits; Z89.021 Acquired absence of right finger(s); Z99.3 Dependence on wheelchair; Z82.0 Family history of epilepsy and other diseases of the nervous system; R15.9 Full incontinence of feces; R32 Unspecified urinary incontinence; Z88.8 Allergy status to other drugs, medicaments and biological substances; R79.89 Other specified abnormal findings of blood chemistry; R40.2142 Coma scale, eyes open, spontaneous, at arrival to emergency department
CPT/HCPCS: 36415; 36600; 70450; 71045; 80048; 80053; 80061; 80164; 81001; 82140; 82550; 82805; 83605; 83735; 83880; 84100; 84132; 84484; 85025; 85610; 85730; 87040; 87070; 87086; 87205; 93005; 94002; 94003; 94640; 95816; 96365; 96366; 96368; 96375; 96376; 99291

== ENCOUNTER 2019-05-19 10:12 | Inpatient (IN) | payer MEDICAID, MEDICARE, OTHER ==
[2019-05-19] MEDS ORDERED: SCOPOLAMINE 1.5MG/72HR PATCH TRANSDERM SCH (10:45)
[2019-05-19] MEDS ORDERED: MORPHINE SULFATE 2 MG/ML SYRINGE IV PRN (10:45)
[2019-05-19] MEDS ORDERED: ACETAMINOPHEN SUPPOSITORY 650 MG SUPP RECTAL PRN (10:45)
[2019-05-19] MEDS ORDERED: LORazepam 2 MG/ML INJ IV PRN (10:45)
[2019-05-19] MEDS ORDERED: ONDANSETRON 4 MG/2 ML VIAL IVP PRN (10:45)
[2019-05-19] MEDS: MORPHINE SULFATE (100 MG/2 ML) 100 MG in SODIUM CHLORIDE 0.9% 100 ML IV SCH ×3 (11:30→21:08)
[2019-05-19 12:33] VITALS: BP 124/51
--- NOTE | 2019-05-19 17:35 | P.DS ---
Providers Date of admission: 05/19/19 11:00 Expected date of discharge: 05/19/19 Attending physician: Kaden Brennan Primary care physician: [facility] Course: Chief Complaint: Cardiac arrest Hospital course: This is a 58-year-old patient, who follows with visiting physicians, also resident of [facility] assisted living. Patient's brother Todd is legal guardian. Patient's chronic stable medical conditions include Down syndrome, urinary and stool incontinence, hyperlipidemia, hypertension, hypothyroid, SIADH, seizure disorder. Had a baseline patient not able to speak. Make some sounds. Does follow commands. Can't feed himself to the. 2. Patient does have a history of aspiration off-and-on. Patient's primary much wheelchair- bound. Patient was apparently having a meal and with the staff turned around and around his head rolled back. And patient stopped breathing. Cardiac arrest was called. Patient's downtime was about 40 minutes. Patient did receive epinephrine. Initially patient's port to the ER at [facility] and patient received 3 epinephrines and was intubated. 4. Also Robitussin the oropharynx during intubation. Central line was placed. Patient became h ypotensive was given levo fed. And also started antibiotics. Patient also given fluid boluses. Patient is also to [facility] here. In the ICU currently on the ventilator. FiO2 60 with PEEP of 5. Drips include epinephrine, IV heparin, levo fed, propofol. Patient did desaturate in the afternoon and was found to have a pneumothorax. Cardiothoracic surgery was consulted and they did put her Thora-vent. Patient contributed to reviewed. Not making much improvement. Family decided to make the patient comfort care. This morning hospice was consulted for GIP. Consultation: Dr. Velez from pulmonary Dr. Poole from neurology Dr Deluca from cardiothoracic surgery. Physical examination: VITAL SIGNS: 98, 20, 136/59, on ventilator GENERAL: Laying in bed, intubated EYES: Pupils equal. Conjunctiva normal. HEENT: External appearance of nose and ears normal, oral cavity grossly normal, endotracheal tube in place. NECK: JVD not raised; masses not palpable. HEART: First and second heart sounds are normal; no edema. LUNGS: Respiratory rate normal; decreased breath sounds. ABDOMEN: Soft, nontender, liver spleen not palpable, no masses palpable. PSYCH: Patient intubatedl. NEUROLOGICAL: Minimal response to pain, bilateral foot drop, pupils reactive sluggish, absent corneal reflex, sluggish gag reflex INVESTIGATIONS, reviewed in the clinical context: White count 14.1 hemoglobin 9.1 potassium 3.4 bun 24 creatinine 0.65 Previous testing ABGs show pH of 7.42 pO2 of 144 Potassium 3.1. 23 creatinine 0.64 Lactic acid 4.6 AST 150 ALT 142 troponin 0.336 Chest x-ray film personally reviewed by me-shows some infiltrates EKG tracing personally reviewed by me shows some ST depression in V2 to V6 and then. Leads 1 and aVL Computed tomography scan of the brain-chronic encephalomalacia anterior right frontal lobe suggesting sequela of prior vascular traumatic insult new from 2012, progressive moderate hydrocephalus EEG-suggestive of anoxic/metabolic encephalopathy Repeat chest x-ray later showed right-sided pneumothorax Final diagnosis: -Cardiac arrest secondary to the case secondary to choking on food, with downtime about 40 minutes in the field -Acute hypoxic respiratory failure requiring ventilator support, slow to respond -Right-sided pneumothorax now with the Thora-vent -Down syndrome, with severe cognitive impairment -Chronic medical debility patient is wheelchair bound -Hyperlipidemia -Chronic seizure disorder -Hypothyroid -Chronic urinary stool incontinent -Chronic SIADH -Cholerigenic shock requiring levo fed -Aspiration pneumonia and altered consciousness -Acute anoxic brain injury secondary to cardiac arrest -CODE STATUS DO NOT RESUSCITATE Disposition: Patient is being made inpatient hospice under [facility]. Family is present. Patient Condition at Discharge: Poor Plan - Discharge Summary New Discharge Prescriptions: No Action traZODone HCL [traZODone] 300 mg PO HS Primidone [Mysoline] 25 mg PO HS Imipramine HCl [Tofranil] 25 mg PO HS Multivitamins, Thera [Multivitamin (formulary)] 1 tab PO DAILY Lacosamide [Vimpat] 100 mg PO BID Sucralfate [Carafate] 1 gm PO BID-W/MEALS Simvastatin [Zocor] 20 mg PO HS Omeprazole [PriLOSEC] 20 mg PO DAILY Melatonin 5 mg PO HS Levothyroxine Sodium [Synthroid] 137 mcg PO DAILY Sennosides/Docusate Sodium [Senna Plus 8.6-50 mg Tablet] 2 tab PO HS Divalproex [Depakote] 250 mg PO HS Divalproex [Depakote] 500 mg PO HS Clindamycin Topical Soln [Cleocin-T Topical Soln] 1 applic TOPICAL BID Beneprotein Powder 1 scoop PO BID Aspirin [[place] Aspirin EC] 81 mg PO DAILY Triamcinolone Acetonide [Triamcinolone Acetonide 0.025%] 1 applic TOPICAL HS Divalproex [Depakote] 1,000 mg PO DAILY Acetaminophen Tab [Tylenol Tab] 500 mg PO Q6H Nystatin 1 applic TOPICAL BID PRN PRN Reason: IRRITATION Magnesium Hydroxide [Milk of Magnesia] 2,400 mg PO DAILY PRN PRN Reason: Constipation LORazepam [Ativan] 1 mg PO DAILY PRN PRN Reason: Seizures Loperamide [Imodium] 2 mg PO QID PRN PRN Reason: Diarrhea Ibuprofen 200 mg PO Q6H PRN PRN Reason: Pain Or Fever > 100.5 Ketoconazole [Ketoconazole 2%] 1 applic TOPICAL DAILY Carbamide Peroxide [Debrox Otic] 5 drops BOTH EARS BID PRN PRN Reason: WAX Discharge Medication List Imipramine HCl [Tofranil] 25 mg PO HS 02/23/14 [History] Multivitamins, Thera [Multivitamin (formulary)] 1 tab PO DAILY 02/23/14 [History] Primidone [Mysoline] 25 mg PO HS 02/23/14 [History] traZODone HCL [traZODone] 300 mg PO HS 02/23/14 [History] Acetaminophen Tab [Tylenol Tab] 500 mg PO Q6H 05/17/19 [History] Aspirin [[place] Aspirin EC] 81 mg PO DAILY 05/17/19 [History] Beneprotein Powder 1 scoop PO BID 05/17/19 [History] Carbamide Peroxide [Debrox Otic] 5 drops BOTH EARS BID PRN 05/17/19 [History] Clindamycin Topical Soln [Cleocin-T Topical Soln] 1 applic TOPICAL BID 05/17/19 [History] Divalproex [Depakote] 1,000 mg PO DAILY 05/17/19 [History] Divalproex [Depakote] 250 mg PO HS 05/17/19 [History] Divalproex [Depakote] 500 mg PO HS 05/17/19 [History] Ibuprofen 200 mg PO Q6H PRN 05/17/19 [History] Ketoconazole [Ketoconazole 2%] 1 applic TOPICAL DAILY 05/17/19 [History] LORazepam [Ativan] 1 mg PO DAILY PRN 05/17/19 [History] Lacosamide [Vimpat] 100 mg PO BID 05/17/19 [History] Levothyroxine Sodium [Synthroid] 137 mcg PO DAILY 05/17/19 [History] Loperamide [Imodium] 2 mg PO QID PRN 05/17/19 [History] Magnesium Hydroxide [Milk of Magnesia] 2,400 mg PO DAILY PRN 05/17/19 [History] Melatonin 5 mg PO HS 05/17/19 [History] Nystatin 1 applic TOPICAL BID PRN 05/17/19 [History] Omeprazole [PriLOSEC] 20 mg PO DAILY 05/17/19 [History] Sennosides/Docusate Sodium [Senna Plus 8.6-50 mg Tablet] 2 tab PO HS 05/17/19 [History] Simvastatin [Zocor] 20 mg PO HS 05/17/19 [History] Sucralfate [Carafate] 1 gm PO BID-W/MEALS 05/17/19 [History] Triamcinolone Acetonide [Triamcinolone Acetonide 0.025%] 1 applic TOPICAL HS 05/17/19 [History]
[2019-05-19 19:51] VITALS: PULSE 104; RESP 25
--- NOTE | 2019-05-25 08:56 | DS ---
DISCHARGE SUMMARY DATE OF ADMISSION: 05/19/2019. DATE PATIENT : 05/20/2019. CAUSE OF : Aspiration pneumonia. OTHER CONTRIBUTING CONDITIONS: Down syndrome. HOSPITAL COURSE: The patient was made comfort care following several episodes of cardiac arrest, pneumothorax, was admitted to [facility] for comfort measures and succumbed to underlying problem. Family had been present. MMODL / IJN: [id number] /
== END 2019-05-20 03:02 | disposition expired | DRG 951 ==
LOC: 2SICU 11:00 → 3NMEDONC 05-20 00:44
PROVIDERS: ADMIT Hospitalist; ATTEND Hospitalist
DX: Z51.5 Encounter for palliative care (principal); J69.0 Pneumonitis due to inhalation of food and vomit; J96.01 Acute respiratory failure with hypoxia; R57.0 Cardiogenic shock; E22.2 Syndrome of inappropriate secretion of antidiuretic hormone; G93.1 Anoxic brain damage, not elsewhere classified; J93.9 Pneumothorax, unspecified; Z66 Do not resuscitate; E03.9 Hypothyroidism, unspecified; E78.5 Hyperlipidemia, unspecified; G40.909 Epilepsy, unspecified, not intractable, without status epilepticus; I10 Essential (primary) hypertension; Q90.9 Down syndrome, unspecified; Z99.3 Dependence on wheelchair